=== PATIENT | female | born 1955 | race Caucasian/White ===

== ENCOUNTER 2020-03-01 10:56 | Outpatient (REF) | payer MEDICARE, SELFPAY | END 2020-03-01 10:57 | disposition home or self-care (01) | LOC: HO.LAB 10:56 | PROVIDERS: Visit Provider Hospitalist | DX: Z20.828 Contact with and (suspected) exposure to other viral communicable diseases (principal) | CPT/HCPCS: U0003 ==

== ENCOUNTER 2021-11-06 08:12 | Outpatient (REF) | payer MEDICARE, SELFPAY ==
[2021-11-06 11:30] LABS: Appearance Urine Clear; Color Urine Yellow; Glucose Urine UA Negative (Negative); Leukocyte Esterase Urine Small (1+) (Negative); Nitrite Urine Negative (Negative); PH 6.5 (5.0-9.0); Specific Gravity - Urine 1.015 (1.005-1.025); Urine Blood Trace (Negative); Urine Ketones Negative (Negative); Urine Protein Negative (Neg-Trace)
[2021-11-06 11:33] LABS: Basophils Absolute Auto 0.1 X10*3/uL (0.0-0.2); Basophils Percent Auto 0.8 % (0-2); Eosinophils Absolute Auto 0.3 X10*3/uL (0.0-0.4); Eosinophils Percent Auto 3.8 % (0-4); Hematocrit 39.7 % (37.0-47.0); Hemoglobin 13.4 g/dl (12.0-16.0); Imm Gran Abs Auto 0.04 X10*3/uL (0.00-0.03); Imm Gran Pct Auto 0.4 % (0.0-0.4); Lymphocytes Absolute Auto 1.9 X10*3/uL (1.2-4.9); MANUAL DIFF FLAG SCAN; Mean Corpuscular HGB Conc 33.8 g/dl (31.0-35.0); Mean Corpuscular Hemoglobin 31.5 pg (27.0-33.0); Mean Corpuscular Volume 93.4 fL (80.0-98.0); Mean Platelet Volume 10.7 fL (9.4-12.3); Monocytes Absolute Auto 0.8 X10*3/uL (0.1-1.2); Neutrophils Absolute Auto 5.8 x10*3/uL (2.0-8.3); PLT CLUMP 1; Red Blood Count 4.25 X10*6/uL (4.20-5.50); Red Cell Distribution Width 11.8 % (11.0-16.0); SCAN SMEAR FLAG 1
[2021-11-06 11:37] LABS: Bacteria Urine 2+ (None Seen); Estimated Average Glucose 143 mg/dL; Hemoglobin A1c % 6.6 %; Hyaline Casts Urine 0-2 /LPF (0-2); UACC Culture Trigger YES
[2021-11-06 12:02] LABS: TSH reflex Free T4 2.88 uIU/mL (0.32-4.0)
[2021-11-06 12:04] LABS: Platelet Count 238 X10*3/uL (160-400)
[2021-11-06 12:05] LABS: SLIDE REVIEW VERIFIED
[2021-11-06 12:09] LABS: Alanine Aminotransferase 18 U/L (0-31); Albumin Level 4.2 g/dL (3.5-5.0); Alkaline Phosphatase 85 U/L (39-117); Anion Gap 16 (12-20); Aspartate Amino Transferase 22 U/L (5-31); Bilirubin Total 0.4 mg/dL (0.0-1.0); Blood Urea Nitrogen 12 mg/dL (9-16); Calcium 9.1 mg/dL (8.4-10.2); Carbon Dioxide 26 mmol/L (22-29); Chloride 104 mmol/L (96-108); Cholesterol 210 mg/dL; Creatinine Urine 126.12 mg/dL; Estimated Glomerular Filt Rate > 60; Glucose Fasting 161 mg/dL (60-99); HDL Cholesterol 45 mg/dL; LDL Cholesterol Calculated 143 mg/dl; Microalbum/Creatinine Ratio Ur 9.5 ug/mg cr; Potassium 4.7 mmol/L (3.3-5.1); Sodium 141 mmol/L (135-145); Total Protein 7.4 g/dL (6.5-8.0); Triglycerides 111 mg/dL
== END 2021-11-06 08:13 | disposition home or self-care (01) ==
LOC: HO.WFDLDS 08:12
PROVIDERS: Visit Provider Family Medicine
DX: Z00.00 Encounter for general adult medical examination without abnormal findings (principal); R73.01 Impaired fasting glucose; I10 Essential (primary) hypertension
CPT/HCPCS: 36415; 80053; 80061; 81001; 82043; 83036; 84443; 85025; 87086

== ENCOUNTER → 2021-12-24 07:49 | Outpatient (BNVA) | payer MEDICARE, SELFPAY | PROVIDERS: PCP Family Medicine; Visit Provider Nurse Practitioner Family | DX: G47.00 Insomnia, unspecified (principal); G47.9 Sleep disorder, unspecified; R06.83 Snoring | CPT/HCPCS: 99202 ==

== ENCOUNTER → 2022-01-07 08:03 | Outpatient (REF) | payer MEDICARE, SELFPAY | LOC: HO.SL 08:03 | PROVIDERS: PCP Family Medicine; Visit Provider Nurse Practitioner Family | DX: G47.00 Insomnia, unspecified (principal); G47.30 Sleep apnea, unspecified; R40.0 Somnolence | CPT/HCPCS: 95806 ==

== ENCOUNTER 2022-03-26 09:01 | Outpatient (REF) | payer MEDICARE, SELFPAY ==
[2022-03-26 12:15] LABS: Alanine Aminotransferase 12 U/L (0-31); Albumin Level 3.9 g/dL (3.5-5.0); Alkaline Phosphatase 93 U/L (39-117); Anion Gap 18 (12-20); Aspartate Amino Transferase 17 U/L (5-31); Bilirubin Total 0.7 mg/dL (0.0-1.0); Blood Urea Nitrogen 15 mg/dL (9-16); Calcium 9.4 mg/dL (8.4-10.2); Carbon Dioxide 24 mmol/L (22-29); Chloride 103 mmol/L (96-108); Cholesterol 182 mg/dL; Estimated Glomerular Filt Rate > 60; Glucose Fasting 187 mg/dL (60-99); HDL Cholesterol 46 mg/dL; LDL Cholesterol Calculated 117 mg/dl; Potassium 4.5 mmol/L (3.3-5.1); Sodium 140 mmol/L (135-145); Total Protein 6.9 g/dL (6.5-8.0); Triglycerides 98 mg/dL
== END 2022-03-26 09:02 | disposition home or self-care (01) ==
LOC: HO.WFDLDS 09:01
PROVIDERS: Visit Provider Family Medicine
DX: Z00.00 Encounter for general adult medical examination without abnormal findings (principal); E11.9 Type 2 diabetes mellitus without complications; E78.00 Pure hypercholesterolemia, unspecified
CPT/HCPCS: 36415; 80053; 80061

== ENCOUNTER 2022-06-17 09:32 | Outpatient (REF) | payer MEDICARE, SELFPAY ==
[2022-06-17 13:35] LABS: Alanine Aminotransferase 20 U/L (0-31); Albumin Level 4.2 g/dL (3.5-5.0); Alkaline Phosphatase 104 U/L (39-117); Anion Gap 14 (12-20); Aspartate Amino Transferase 19 U/L (5-31); Bilirubin Total 0.7 mg/dL (0.0-1.0); Blood Urea Nitrogen 15 mg/dL (9-16); Calcium 9.6 mg/dL (8.4-10.2); Carbon Dioxide 27 mmol/L (22-29); Chloride 105 mmol/L (96-108); Estimated Glomerular Filt Rate > 60; Glucose Fasting 162 mg/dL (60-99); Potassium 4.8 mmol/L (3.3-5.1); Sodium 141 mmol/L (135-145); Total Protein 7.1 g/dL (6.5-8.0)
== END 2022-06-17 09:33 | disposition home or self-care (01) ==
LOC: HO.WFDLDS 09:32
PROVIDERS: Visit Provider Family Medicine
DX: Z00.00 Encounter for general adult medical examination without abnormal findings (principal)
CPT/HCPCS: 36415; 80053

== ENCOUNTER 2022-09-22 09:13 | Outpatient (REF) | payer MEDICARE, SELFPAY ==
[2022-09-22 11:59] LABS: Anion Gap 12 (12-20); Blood Urea Nitrogen 12 mg/dL (9-16); Calcium 9.7 mg/dL (8.4-10.2); Carbon Dioxide 28 mmol/L (22-29); Chloride 105 mmol/L (96-108); Cholesterol 180 mg/dL; Estimated Glomerular Filt Rate > 60; Glucose Random 159 mg/dL (60-115); HDL Cholesterol 47 mg/dL; LDL Cholesterol Calculated 103 mg/dl; Potassium 4.2 mmol/L (3.3-5.1); Sodium 141 mmol/L (135-145); Triglycerides 151 mg/dL
== END 2022-09-22 09:14 | disposition home or self-care (01) ==
LOC: HO.WFDLDS 09:13
PROVIDERS: Visit Provider Family Medicine
DX: Z00.00 Encounter for general adult medical examination without abnormal findings (principal); E78.00 Pure hypercholesterolemia, unspecified
CPT/HCPCS: 36415; 80048; 80061

== ENCOUNTER 2022-10-01 09:29 | Outpatient (AMB) | payer MEDICARE, SELFPAY ==
[2022-10-01 09:54] VITALS: BP 124/68; PULSE 80; O2SAT 98; BMI 31.5
--- NOTE | 2022-10-01 09:54 | MHC.PC.OV ---
Vital Signs 10/01/22 09:54 Height 5 ft 5 in Weight 189 lb 6 oz BMI 31.5 BP 124/68 Blood Pressure Location Lt brachial Position Sitting Pulse 80 Pulse Source Pulse Oximeter Pulse Oximetry (%) 98 Oxygen Delivery Method Room Air Intake Visit Reasons: f/u diabetes, HLD Intake Note: Patient is following up diabetes. Allergies penicillin V Allergy (Mild, Verified 10/01/22 09:55) unknown Medication List - Last Reconciled 10/01/22 by Heber Mcneill MD aspirin 325 mg PO QAM clonidine HCl 0.1 mg PO DAILY 30 days ibuprofen 600 mg PO TID PRN losartan 50 mg PO DAILY 90 days sennosides-docusate sodium 8.6-50 mg (Stimulant Laxative Plus) 2 tabs PO BEDTIME PRN sitagliptin phos-metformin 50-500 mg ER (Janumet XR) 1 tab PO DAILY 30 days zolpidem ER 6.25 mg PO BEDTIME PRN 30 days Tobacco use date assessed: 04/03/22 Fall risk assessment: No Falls in past year Dental Screening Dental Screen Date: 10/01/22 Did you have a dental visit in the last 12 months?: Yes Did you have a dental problem in the last 6 months where you did not have access to dental care?: No Was dental information given to patient?: No HPI f/u diabetes, HLD HPI Details 67 y/o female presents to f/u diabetes and hyperlipidemia. Last A1c 07/03/22 7.4.% She had noted she had a lot of fruits in [place]. She had also noted a recent cortisone shot for her knees. Had switched metformin to Janumet but she reports this has been giving her a significant headache. A1c today 10/01/22 is 6.5%. Blood pressure today is 124/68. She is on losartan 50mg and clonidine 0.1mg daily. Labs were drawn 09/22/22. Reviewed labs with pt. Triglycerides 151. TC 180. LDL 103. HDL 47. PFSH Medical History Bunion, right foot Surgical History H/O knee surgery H/O toe surgery History of lumbar fusion Family History Father Diabetes Mother Pacemaker High blood pressure Social History Housing: Condominium Alcohol intake: current Alcohol intake frequency: a few times a month Patient Tobacco Use Status: Former Tobacco user Quit Date: 1977 e-Cigarette/Vaping Use: Never Used Second Hand Smoke Exposure: No service: No Current occupational status: retired Current occupational exposures/hazards: No Cognitive needs: No Hearing needs: No Vision needs: No Questionnaire Thrive Questionnaire Date Thrive assessed: 04/03/22 MOE-7 AMB Questionnaire MOE-7 Date MOE - 7 assessed: 04/03/22 Source: Developed by Drs. César Jackson, Ramonita Fernandes, Cecilio Shepard and colleagues, with an educational vicente from [employer]. Physical exam (Primary Care) Vital Signs: Last Vital Signs Pulse 80 10/01/22 09:54 BP 124/68 10/01/22 09:54 Pulse Ox 98 10/01/22 09:54 Oxygen Delivery Method Room Air 10/01/22 09:54 BMI result Body Mass Index 31.5 Tobacco/Smoking Status: Tobacco use Status Tobacco use date assessed 04/03/22 10/01/22 10:01 Patient Tobacco Use Status Former Tobacco user 10/01/22 10:01 e-Cigarette/Vaping Use Never Used 10/01/22 10:01 Thrive Assessment: Date of Thrive Assessment Date Thrive assessed 04/03/22 10/01/22 10:01 Assessment and Plan Assessment & Plan (1) Diabetes: Code(s): E11.9 - Type 2 diabetes mellitus without complications Plan: A1c had improved from 7.4% to 6.5% on Januvia and goal is less than 7.0%. However, patient says she cannot tolerate this due to it causing headaches. She went back to taking metformin for the past 2 days and headaches have discontinued. Also, she notes that to new via is too expensive for her. Will have her take metformin 500 mg daily and add Trulicity 0.75 mg weekly Will follow up in a month to ensure she is tolerating this regimen. Getting regular eye exams (2) Hypercholesterolemia: Code(s): E78.00 - Pure hypercholesterolemia, unspecified Plan: LDL cholesterol is improved and nearly at goal of less than 100 for patient with diabetes Encouraged further weight loss and a diet lower in saturated fats and cholesterol (3) Hypertension: Code(s): I10 - Essential (primary) hypertension Plan: Blood pressure is controlled. Goal is less than 140/90 Continue current medication regimen Orders: Orders AMB Hemoglobin A1c Today Z13.9 - Encounter for screening, unspecified Medications: New metformin 500 mg PO DAILY 90 days 90 tabs 2RF dulaglutide (Trulicity) 0.75 mg (0.5 mL) subcut QWEEK 28 days 2 mL 3RF Changed From ibuprofen 600 mg PO TID PRN To ibuprofen 600 mg PO TID 30 days PRN 90 tabs 0RF pain Refilled tramadol [facility] verified. Partial refill upon request. 50 mg PO BID 10 days PRN 20 tabs 0RF pain Discontinued sitagliptin phos-metformin 50-500 mg ER (Janumet XR) Discontinued Reason: Doctor's Order 1 tab PO DAILY 30 days 30 tabs 2RF Coding Level of Care Code Est Pt Level 4 (31891) Diagnoses Diabetes E11.9 Hypercholesterolemia E78.00 Hypertension I10
== END 2022-10-01 10:24 | disposition home or self-care (01) ==
PROVIDERS: PCP Family Medicine; Visit Provider Family Medicine
DX: E11.9 Type 2 diabetes mellitus without complications (principal); E78.00 Pure hypercholesterolemia, unspecified; I10 Essential (primary) hypertension
CPT/HCPCS: 99214

== ENCOUNTER 2022-11-11 15:50 | Outpatient (AMB) | payer MEDICARE, SELFPAY ==
--- NOTE | 2022-11-11 16:01 | A.OFFPC_ITS ---
Vital Signs 11/11/22 16:02 Height 5 ft 5 in Weight 191 lb BMI 31.8 BP 134/70 Blood Pressure Location Rt brachial Position Sitting Respiration 12 Pulse 86 Pulse Source Pulse Oximeter Temp 97.9 F Temp Source Temporal Artery Scan Pulse Oximetry (%) 98 Oxygen Delivery Method Room Air Intake Visit Reasons: f/u diabetes Intake Note: Patient states that she is interested in getting a meter to monitor her glucose. Patient also states that she is taking half a tab of metformin instead of full tablet due to metformin causing headaches. Patient is wondering if there is an alternative for metformin she can get prescribed. 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 Accompanied by: Self / Same As Patient Allergies penicillin V Allergy (Mild, Verified 11/11/22 16:33) unknown Medication List - Last Reconciled 11/11/22 by Florence Fang CNP clonidine HCl 0.1 mg PO DAILY 30 days dulaglutide (Trulicity) 0.75 mg (0.5 mL) subcut QWEEK 28 days ibuprofen 600 mg PO TID PRN 30 days losartan 50 mg PO DAILY 90 days metformin 250 mg PO DAILY sennosides-docusate sodium 8.6-50 mg (Stimulant Laxative Plus) 2 tabs PO BEDTIME PRN tramadol 50 mg PO BID PRN 10 days zolpidem ER 6.25 mg PO BEDTIME PRN 30 days Tobacco use date assessed: 04/03/22 Fall risk assessment: No Falls in past year Last assessed Fall Risk: 11/11/22 Dental Screening Dental Screen Date: 11/11/22 Did you have a dental visit in the last 12 months?: Yes Did you have a dental problem in the last 6 months where you did not have access to dental care?: No Was dental information given to patient?: Patient has dentist HPI HPI Comments History of Present Illness Details 67-year-old female presents for diabetes follow-up. She is on metformin and Trulicity. She notes she takes after dose (250 mg) of metformin daily for the past 2 weeks d/t adverse effect of headache. She reports improve of headache since adjusting metformin dose. She has been taking Trulicity as prescribed. No acute symptoms today. [facility] Medical History Bunion, right foot Surgical History H/O toe surgery History of lumbar fusion H/O knee surgery Family History Father Diabetes Mother Pacemaker High blood pressure [facility] Alcohol intake: current Alcohol intake frequency: a few times a month Patient Tobacco Use Status: Never used Tobacco e-Cigarette/Vaping Use: Never Used Second Hand Smoke Exposure: No service: No Current occupational status: retired Current occupational exposures/hazards: No Cognitive needs: No Hearing needs: No Vision needs: No Questionnaire Thrive Questionnaire Date Thrive assessed: 04/03/22 MOE-7 AMB Questionnaire MOE-7 Date MOE - 7 assessed: 04/03/22 Source: Developed by Drs. César Jackson, Ramonita Fernandes, Cecilio Shepard and colleagues, with an educational vicente from [employer]. Review of Systems Const Details: Const Denies chills, Denies fatigue, Denies fever(s), Denies headache(s) and Denies weakness ENT Denies dizziness and Denies headache(s) Card Denies chest pain, Denies lightheadedness, Denies dyspnea and Denies other (Palpitations) Resp Denies cough, Denies dyspnea, Denies wheezing and Denies other ( shortness of breath) GI Denies abdominal pain, Denies melena, Denies hematochezia, Denies change in bowel habits, Denies dyspepsia and Denies nausea Denies hematuria and Denies dysuria Musc Denies abnormal gait, Denies myalgias, Denies arthralgias, Denies numbness and Denies tingling Skin/Breast Denies rash, Denies unusual bruising and Denies wounds Neuro Denies abnormal gait, Denies dizziness, Denies headache(s), Denies memory loss, Denies numbness, Denies Sensory deficit (Neuro), Denies tingling and Denies weakness Psych Denies anxiety, Denies depression, Denies memory loss Endo Denies cold intolerance, Denies fatigue, Denies heat intolerance, Denies polydipsia and Denies polyuria Aller/Immun Denies wheezing Physical exam (Primary Care) Vital Signs: Last Vital Signs Temp 97.9 F 11/11/22 16:02 Pulse 86 11/11/22 16:02 Resp 12 11/11/22 16:02 BP 134/70 11/11/22 16:02 Pulse Ox 98 11/11/22 16:02 Oxygen Delivery Method Room Air 11/11/22 16:02 BMI result Body Mass Index 31.8 Tobacco/Smoking Status: Tobacco use Status Tobacco use date assessed 04/03/22 11/11/22 16:01 Patient Tobacco Use Status Never used Tobacco 11/11/22 16:23 e-Cigarette/Vaping Use Never Used 11/11/22 16:01 Thrive Assessment: Date of Thrive Assessment Date Thrive assessed 04/03/22 11/11/22 16:01 Const Other: General: no acute distress and well developed Nutritional Appearance: well nourished Orientation/consciousness: patient oriented x3 HENMT Head: Yes normocephalic and Yes atraumatic Eyes General: appearance normal, both eyes and all related structures Pupils: Equal, round and reactive pupils present EOM: EOMs intact bilaterally Resp Effort & Inspection: normal respiratory effort Auscultation: clear to auscultation bilaterally Cardio Rate: regular rate Rhythm: regular rhythm Heart sounds: S1 normal heart sound present, S2 normal heart sound present, no gallops, no murmurs and no rubs GI Palpation (GI): No Abdominal aortic bruit present, Soft to palpation, nontender, No hepatosplenomegaly present and No Rebound tenderness present Auscultation: normal bowel sounds General: Yes no CVA tenderness Back/Spine/Pelvis Back: no CVA tenderness Cervical Spine: cervical ROM normal and No Cervical spine tenderness Thoracic/Lumbar Spine: thoraco-lumbar ROM normal, No pain with thoraco-lumbar ROM, No thoracic spinal tenderness and No lumbar spinal tenderness Extrem General: Yes normal to inspection, No edema and No calf tenderness Skin General: warm and dry. Normal skin color. Normal skin turgor Lesions: no lesions Rashes: no rashes Trauma: no lacerations or abrasions Wounds: no wounds Nails: normal Neuro General: patient oriented x3, gait normal and no focal neuro deficit Cranial nerves: Yes Equal, round and reactive pupils present Cognition (Neuro): normal cognition Gait exam (Neuro): Normal gait present Sensory Exam: No Sensory deficit (Neuro) Psych Appearance: grossly normal Affect: normal affect Attitude: cooperative Thought process: Normal thought process present Results AMB Hemoglobin A1c AMB Hemoglobin A1c 6.5 % Last Edit by Sweta Nguyen MA on 11/11/22 16:35 Assessment and Plan Assessment & Plan (1) Diabetes: Code(s): E11.9 - Type 2 diabetes mellitus without complications Qualifiers: Diabetes mellitus type: type 2 Plan: Her A1c is 6.5% today, within goal of less than 7.0% Previous A1c 7.4% Take metformin 250 mg daily and Trulicity 0.75 mg daily ADA diet and routine exercise encouraged Glucometer and supplies ordered. Advised to check blood glucose to 3 times daily Follow-up in 3 months or return sooner with worsening or new symptoms. May with your metformin with worsening headache Verbalized understanding and agreed with treatment plan. (2) Hypertension: Code(s): I10 - Essential (primary) hypertension Qualifiers: Hypertension type: primary hypertension Qualified Code(s): I10 - Essential (primary) hypertension Plan: Blood pressure is 134/70, slightly above goal of less than 130/80 Continue with current treatment regimen Low-sodium diet encouraged Follow-up in 3 months or return sooner with symptoms or concerns Verbalized understanding and agreed with treatment plan. Orders: Orders AMB Hemoglobin A1c Today Z13.9 - Encounter for screening, unspecified Medications: New blood-glucose meter (FreeStyle Lite Meter kit) As directed 1 ea 0RF blood sugar diagnostic (FreeStyle Lite Strips) As directed TID 100 ea 4RF lancets (FreeStyle Lancets) As directed 100 ea 4RF Changed From metformin 500 mg PO DAILY 90 days 90 tabs 2RF To metformin 250 mg PO DAILY Coding Level of Care Code Est Pt Level 3 (19608) Diagnoses Diabetes E11.9 Diabetes mellitus type: type 2 Primary hypertension I10 Hypertension type: primary hypertension
[2022-11-11 16:02] VITALS: BP 134/70; PULSE 86; RESP 12; TEMP 36.6; O2SAT 98; BMI 31.8
== END 2022-11-11 16:57 | disposition home or self-care (01) ==
PROVIDERS: PCP Family Medicine; Visit Provider Nurse Practitioner Family
DX: E11.9 Type 2 diabetes mellitus without complications (principal); I10 Essential (primary) hypertension
CPT/HCPCS: 99213

== ENCOUNTER 2023-01-15 13:47 | Outpatient (AMB) | payer MEDICARE, SELFPAY ==
[2023-01-15 14:06] VITALS: BP 128/82; PULSE 101; O2SAT 98; BMI 31.1
--- NOTE | 2023-01-15 14:06 | MHC.PC.OV ---
Vital Signs 01/15/23 14:06 Height 5 ft 5 in Weight 187 lb BMI 31.1 BP 128/82 Blood Pressure Location Lt brachial Position Sitting Pulse 101 H Pulse Source Pulse Oximeter Pulse Oximetry (%) 98 Oxygen Delivery Method Room Air Intake Visit Reasons: Annual Physical Intake Note: Patient is here for A1C Allergies penicillin V Allergy (Mild, Verified 11/11/22 16:33) unknown Tobacco use date assessed: 01/15/23 Fall risk assessment: No Falls in past year Last assessed Fall Risk: 01/15/23 HPI Annual Physical HPI Details 67 y/o female presents to f/u diabetes and hypertension today. A1c today 01/15/23 5.8%. She is on metformin 250mg daily along with Trulicity 0.75mg. She reports concerns about the osorio of her Trulicity. She sees an eye doctor once a year for diabetes. Blood pressure today 128/82. She is on losartan 50mg daily. [facility] Medical History Bunion, right foot Surgical History H/O toe surgery History of lumbar fusion H/O knee surgery Family History Father Diabetes Mother Pacemaker High blood pressure [facility] Alcohol intake: current Alcohol intake frequency: a few times a month Patient Tobacco Use Status: Never used Tobacco e-Cigarette/Vaping Use: Never Used Second Hand Smoke Exposure: No service: No Current occupational status: retired Current occupational exposures/hazards: No Cognitive needs: No Hearing needs: No Vision needs: No Questionnaire Thrive Questionnaire Date Thrive assessed: 04/03/22 MOE-7 AMB Questionnaire MOE-7 Date MOE - 7 assessed: 04/03/22 Source: Developed by Drs. César Jackson, Ramonita Fernandes, Cecilio Shepard and colleagues, with an educational vicente from [employer]. Review of Systems Const Denies chills, Denies fatigue, Denies fever(s), Denies headache(s) and Denies weakness ENT Denies dizziness and Denies headache(s) Card Denies dyspnea Resp Denies cough, Denies dyspnea, Denies wheezing and Denies other (shortness of breath) Musc Denies numbness and Denies tingling Neuro Denies dizziness, Denies headache(s), Denies numbness, Denies tingling and Denies weakness Psych Denies anxiety and Denies depression Endo Denies fatigue Aller/Immun Denies wheezing Physical exam (Primary Care) Vital Signs: Last Vital Signs Pulse 101 H 01/15/23 14:06 BP 128/82 01/15/23 14:06 Pulse Ox 98 01/15/23 14:06 Oxygen Delivery Method Room Air 01/15/23 14:06 BMI result Body Mass Index 31.1 Tobacco/Smoking Status: Tobacco use Status Tobacco use date assessed 01/15/23 01/15/23 14:16 Patient Tobacco Use Status Never used Tobacco 01/15/23 14:09 e-Cigarette/Vaping Use Never Used 01/15/23 14:09 Thrive Assessment: Date of Thrive Assessment Date Thrive assessed 04/03/22 01/15/23 14:09 Const General: well developed; No acute distress Nutritional Appearance: well nourished Orientation/consciousness: patient oriented x3 HENMT Head: Yes normocephalic and Yes atraumatic Eyes General: appearance normal, both eyes and all related structures Pupils: Equal, round and reactive pupils present EOM: EOMs intact bilaterally Resp Effort & Inspection: normal respiratory effort Auscultation: clear to auscultation bilaterally Cardio Rate: regular rate Rhythm: regular rhythm Heart sounds: S1 normal heart sound present, S2 normal heart sound present, no gallops, no murmurs and no rubs Neuro General: patient oriented x3 and gait normal Cranial nerves: Yes Equal, round and reactive pupils present Psych Affect: normal affect Results AMB Hemoglobin A1c AMB Hemoglobin A1c 5.8 % Last Edit by Lana Dickerson CMA on 01/15/23 14:30 Results Reviewed Results Reviewed: Laboratory Last Values Hgb A1c (Clinic) 5.8 % (4.0-6.0) 01/15/23 14:22 Assessment and Plan Assessment & Plan (1) Diabetes: Code(s): E11.9 - Type 2 diabetes mellitus without complications Qualifiers: Diabetes mellitus type: type 2 Plan: Diabetes?is?very?well?controlled.??Goal?is?less?than?7.0% She?has?been?taking?Trulicity?and?metformin?500?mg?daily. However,?she?notes?that?Trulicity?has?become?very?expensive She?was?given?some?phone?numbers?by?her?insurance?and?I?recommended?she?call?these. She?can?decrease?metformin?to?250?mg?daily If?she?is?unable?to?acquire?Trulicity?at?a?more?affordable?osorio,?she?will?let?me?know?and?we?will?adjust?her?medication?regimen?again. (2) Hypertension: Code(s): I10 - Essential (primary) hypertension Qualifiers: Hypertension type: primary hypertension Qualified Code(s): I10 - Essential (primary) hypertension Plan: Blood?pressure?is?controlled. Goal?is?less?than?140/90 Continue?current?medication (3) Hypercholesterolemia: Code(s): E78.00 - Pure hypercholesterolemia, unspecified Plan: Discussed?that?her?LDL?cholesterol?is?above?goal?of?less?than?100?for?patient?with?diabetes Encouraged?lifestyle?changes Will?recheck?lipids?with?her?next?blood?draw Orders: Orders AMB Hemoglobin A1c Today Z13.9 - Encounter for screening, unspecified Coding Level of Care Code Est Pt Level 4 (70310) Diagnoses Diabetes E11.9 Diabetes mellitus type: type 2 Primary hypertension I10 Hypertension type: primary hypertension Hypercholesterolemia E78.00
== END 2023-01-15 15:16 | disposition home or self-care (01) ==
PROVIDERS: PCP Family Medicine; Visit Provider Family Medicine
DX: E11.9 Type 2 diabetes mellitus without complications (principal); I10 Essential (primary) hypertension; E78.00 Pure hypercholesterolemia, unspecified
CPT/HCPCS: 83036; 99214

== ENCOUNTER 2023-03-19 10:55 | Outpatient (REF) | payer MEDICARE, SELFPAY | END 2023-03-19 10:56 | disposition home or self-care (01) | LOC: HO.WFDLDS 10:55 | PROVIDERS: Visit Provider Family Medicine | DX: Z13.89 Encounter for screening for other disorder (principal) ==

== ENCOUNTER 2023-03-20 09:24 | Outpatient (REF) | payer MEDICARE, SELFPAY ==
[2023-03-20 11:19] LABS: MANUAL DIFF FLAG NO
[2023-03-20 11:59] LABS: Appearance Urine Clear; Color Urine Yellow; Glucose Urine UA Negative (Negative); Leukocyte Esterase Urine Trace (Negative); Nitrite Urine Negative (Negative); Specific Gravity - Urine 1.015 (1.005-1.025); UMIC TRIGGER UA YES; Urine Blood Trace (Negative); Urine Ketones Negative (Negative); Urine Protein Negative (Neg-Trace)
[2023-03-20 12:01] LABS: Basophils Absolute Auto 0.1 X10*3/uL (0.0-0.2); Basophils Percent Auto 1.1 % (0-2); Eosinophils Absolute Auto 0.3 X10*3/uL (0.0-0.4); Eosinophils Percent Auto 3.6 % (0-4); Hematocrit 42.9 % (37.0-47.0); Hemoglobin 14.2 g/dl (12.0-16.0); Imm Gran Abs Auto 0.04 X10*3/uL (0.00-0.03); Imm Gran Pct Auto 0.4 % (0.0-0.4); Lymphocytes Absolute Auto 2.3 X10*3/uL (1.2-4.9); Lymphocytes Percent Auto 25.1 % (20-40); Mean Corpuscular HGB Conc 33.1 g/dl (31.0-35.0); Mean Corpuscular Hemoglobin 31.1 pg (27.0-33.0); Mean Corpuscular Volume 93.9 fL (80.0-98.0); Mean Platelet Volume 9.9 fL (9.4-12.3); Monocytes Absolute Auto 0.7 X10*3/uL (0.1-1.2); Monocytes Percent Auto 7.9 % (2-11); Neutrophils Absolute Auto 5.6 x10*3/uL (2.0-8.3); Neutrophils Percent Auto 61.9 % (45-73); Platelet Count 251 X10*3/uL (160-400); Red Blood Count 4.57 X10*6/uL (4.20-5.50)
[2023-03-20 12:02] LABS: Bacteria Urine Trace (None Seen); Hyaline Casts Urine 0-2 /LPF (0-2); WBC Urine 0-5 /HPF (0-5)
[2023-03-20 12:40] LABS: Creatinine Urine 103.67 mg/dL; Microalbum/Creatinine Ratio Ur 5.7 ug/mg cr (<30)
[2023-03-20 12:47] LABS: Estimated Average Glucose 134 mg/dL; Hemoglobin A1c % 6.3 % (<6.0)
[2023-03-20 13:26] LABS: Alanine Aminotransferase 16 U/L (0-31); Albumin Level 4.1 g/dL (3.5-5.0); Alkaline Phosphatase 83 U/L (39-117); Anion Gap 10 (12-20); Aspartate Amino Transferase 18 U/L (5-31); Bilirubin Total 0.6 mg/dL (0.0-1.0); Blood Urea Nitrogen 13 mg/dL (9-16); Calcium 9.3 mg/dL (8.4-10.2); Carbon Dioxide 28 mmol/L (22-29); Chloride 105 mmol/L (96-108); Cholesterol 194 mg/dL (<200); Estimated Glomerular Filt Rate > 60; Glucose Fasting 174 mg/dL (60-99); HDL Cholesterol 56 mg/dL (>40); LDL Cholesterol Calculated 117 mg/dL (<100); Potassium 4.4 mmol/L (3.3-5.1); Sodium 139 mmol/L (135-145); TSH reflex Free T4 3.38 uIU/mL (0.32-4.0); Total Protein 7.4 g/dL (6.5-8.0); Triglycerides 109 mg/dL (<150); Vitamin D 25-OH Total 65.3 ng/mL (>30)
== END 2023-03-20 09:25 | disposition home or self-care (01) ==
LOC: HO.WFDLDS 09:24
PROVIDERS: Visit Provider Family Medicine
DX: Z00.00 Encounter for general adult medical examination without abnormal findings (principal); I10 Essential (primary) hypertension; R73.01 Impaired fasting glucose; E55.9 Vitamin D deficiency, unspecified
CPT/HCPCS: 36415; 80053; 80061; 81001; 82043; 82306; 82570; 83036; 84443; 85025

== ENCOUNTER 2023-03-23 13:53 | Outpatient (AMB) | payer MEDICARE, SELFPAY ==
[2023-03-23 13:56] VITALS: BP 124/78; PULSE 82; O2SAT 98; BMI 30.9
--- NOTE | 2023-03-23 13:56 | A.OFFPC_ITS ---
Vital Signs 03/23/23 13:56 Height 5 ft 5 in Weight 186 lb BMI 30.9 BP 124/78 Blood Pressure Location Lt brachial Position Sitting Pulse 82 Pulse Source Pulse Oximeter Pulse Oximetry (%) 98 Oxygen Delivery Method Room Air Intake Visit Reasons: cpe Intake Note: Patient is here for her physical today. Patient is low on Metformin and Ibuprofen, would like refills. Allergies penicillin V Allergy (Mild, Verified 03/23/23 13:58) unknown Medication List - Last Reconciled 03/23/23 by Heber Mcneill MD blood sugar diagnostic (FreeStyle Lite Strips) As directed TID blood-glucose meter (FreeStyle Lite Meter kit) As directed clonidine HCl 0.1 mg PO DAILY 30 days dulaglutide (Trulicity) 0.75 mg (0.5 mL) subcut QWEEK 28 days ibuprofen 600 mg PO TID PRN 30 days lancets (FreeStyle Lancets) As directed losartan 50 mg PO DAILY 90 days metformin 250 mg PO DAILY sennosides-docusate sodium 8.6-50 mg (Stimulant Laxative Plus) 2 tabs PO BEDTIME PRN tramadol 50 mg PO BID PRN 10 days zolpidem ER 6.25 mg PO BEDTIME PRN 30 days Tobacco use date assessed: 03/23/23 Fall risk assessment: No Falls in past year Last assessed Fall Risk: 03/23/23 Dental Screening Dental Screen Date: 03/23/23 Did you have a dental visit in the last 12 months?: Yes Did you have a dental problem in the last 6 months where you did not have access to dental care?: No Was dental information given to patient?: Patient has dentist HPI cpe HPI Details 67 y/o female presents for a CPE with f/ u labs and health maintenance. Labs were drawn 03/20/23. Reviewed labs with pt. A1c 6.3%. She is on Trulicity 0.75mg, metformin 250mg daily. She notes Trulicity has been too expensive for her. Triglycerides 109. TC 194. LDL 117. HDL 56. Blood pressure today 124/78. She is on losartan 50mg daily. She has not been exercising much. She states she is up to date with her health maintenance. [facility] Medical History Bunion, right foot Surgical History H/O toe surgery History of lumbar fusion H/O knee surgery Family History Father Diabetes Mother Pacemaker High blood pressure [facility] Alcohol intake: current Alcohol intake frequency: a few times a month Patient Tobacco Use Status: Never used Tobacco e-Cigarette/Vaping Use: Never Used Second Hand Smoke Exposure: No service: No Current occupational status: retired Current occupational exposures/hazards: No Cognitive needs: No Hearing needs: No Vision needs: No Questionnaire Thrive Questionnaire Date Thrive assessed: 04/03/22 MOE-7 AMB Questionnaire MOE-7 Date MOE - 7 assessed: 04/03/22 Source: Developed by Drs. César Jackson, Ramonita Fernandes, Cecilio Shepard and colleagues, with an educational vicente from [employer]. Review of Systems Const Denies chills, Denies fatigue, Denies fever(s), Denies headache(s) and Denies weakness Eyes Denies change in vision ENT Denies dizziness, Denies headache(s), Denies hearing loss, Denies nasal congestion, Denies sinus pain, Denies sinus pressure and Denies sore throat Card Denies chest pain, Denies lightheadedness, Denies dyspnea and Denies other (palpitations) Resp Denies cough, Denies dyspnea and Denies wheezing GI Denies abdominal pain, Denies melena, Denies hematochezia, Denies change in bowel habits, Denies dyspepsia and Denies nausea Denies hematuria and Denies dysuria Musc Denies abnormal gait, Denies myalgias, Denies arthralgias, Denies numbness and Denies tingling Skin/Breast Denies rash, Denies unusual bruising and Denies wounds Neuro Denies abnormal gait, Denies dizziness, Denies headache(s), Denies memory loss, Denies numbness, Denies Sensory deficit (Neuro), Denies tingling and Denies weakness Psych Denies anxiety, Denies depression and Denies memory loss Endo Denies cold intolerance, Denies fatigue, Denies heat intolerance, Denies polydipsia and Denies polyuria Sergei/Lymph Denies easy bleeding and Denies easy bruising Aller/Immun Denies wheezing Physical exam (Primary Care) Vital Signs: Last Vital Signs Pulse 82 03/23/23 13:56 BP 124/78 03/23/23 13:56 Pulse Ox 98 03/23/23 13:56 Oxygen Delivery Method Room Air 03/23/23 13:56 BMI result Body Mass Index 30.9 Tobacco/Smoking Status: Tobacco use Status Tobacco use date assessed 03/23/23 03/23/23 14:07 Patient Tobacco Use Status Never used Tobacco 03/23/23 13:57 e-Cigarette/Vaping Use Never Used 03/23/23 13:57 Thrive Assessment: Date of Thrive Assessment Date Thrive assessed 04/03/22 03/23/23 13:57 Const General: no acute distress, well developed, alert and awake Nutritional Appearance: well nourished Orientation/consciousness: patient oriented x3 HENMT Head: Yes normocephalic and Yes atraumatic Ears: hearing grossly normal bilaterally and TM's normal bilaterally General nose exam: Normal external nose present and Normal nares present Mouth: Normal oral and palatal mucosa present and moist mucous membranes Teeth and gingiva: dentition normal Throat: Yes posterior oropharynx normal Eyes General: appearance normal, both eyes and all related structures Pupils: Equal, round and reactive pupils present and Pupil accommodation reflex normal EOM: EOMs intact bilaterally Neck Neck: Yes normal visual inspection, Yes no lymphadenopathy and Yes trachea midline Thyroid: Thyroid normal Carotids: no bruits Lymphatic: no lymphadenopathy noted Chest Chest palpation & inspection: normal inspection of the chest Resp Effort & Inspection: normal respiratory effort Auscultation: clear to auscultation bilaterally Cardio Rate: regular rate Rhythm: regular rhythm Heart sounds: S1 normal heart sound present, S2 normal heart sound present, no gallops, no murmurs and no rubs Bruits: no abdominal aortic bruits and no carotid bruits GI Palpation (GI): No Abdominal aortic bruit present, Soft to palpation, nontender, No hepatosplenomegaly present and No Rebound tenderness present Auscultation: normal bowel sounds General: Yes no CVA tenderness Back/Spine/Pelvis Back: no CVA tenderness Cervical Spine: cervical ROM normal and No Cervical spine tenderness Thoracic/Lumbar Spine: thoraco-lumbar ROM normal, No pain with thoraco-lumbar ROM, No thoracic spinal tenderness and No lumbar spinal tenderness Skin Lesions: no lesions Rashes: no rashes Trauma: no lacerations or abrasions Wounds: no wounds Nails: normal Neuro General: patient oriented x3 Cranial nerves: Yes Equal, round and reactive pupils present Cognition (Neuro): normal cognition Gait exam (Neuro): Normal gait present Motor exam (neuro): 5/5 motor strength present throughout Sensory Exam: No Sensory deficit (Neuro) Deep tendon reflexes (DTR's): Right patellar reflex intensity grade: 2+ and Left patellar reflex intensity grade: 2+ Extrem General: Yes normal to inspection and No edema Psych Appearance: grossly normal Affect: normal affect Attitude: cooperative Thought process: Normal thought process present Assessment and Plan Assessment & Plan (1) Adult general medical exam: Code(s): Z00.00 - Encounter for general adult medical examination without abnormal findings Plan: 67-year-old?female?presents?for?complete?physical?exam Encouraged?healthy?diet?with?active?lifestyle?and?plenty?of?exercise (2) Diabetes: Code(s): E11.9 - Type 2 diabetes mellitus without complications Qualifiers: Diabetes mellitus type: type 2 Plan: A1c?6.3%?which?is?slightly?increased?from?last?check.??Still?at?goal?of?less?verenice n?7.0%?despite?discontinuing?Trulicity?due?to?cost. She?is?taking?metformin?500?mg?daily?and?will?continue?this LDL?cholesterol?is?above?goal?of?less?than?100?for?patient?with?diabetes. Encouraged?her?to?work?at?a?diet?lower?in?saturated?fats?and?cholesterol?we?can? check?this?again?at?a?subsequent?visit (3) Screening for colon cancer: Code(s): Z12.11 - Encounter for screening for malignant neoplasm of colon Plan: Colonoscopy?at?[facility]?last?year. Up-to-date Follow-up?with?[facility]?as?recommended (4) Screening for osteoporosis: Code(s): Z13.820 - Encounter for screening for osteoporosis Plan: Due?for?bone?density?testing-ordered (5) Breast cancer screening by mammogram: Code(s): Z12.31 - Encounter for screening mammogram for malignant neoplasm of breast Plan: Mammogram?last?year?in?May?showed?no?evidence?of?malignancy Ordered?this?year's?mammogram Orders: Orders XR DEXA axial skeleton Today M81.0 - Age-related osteoporosis without current pathological fracture MM tomosynthesis screening BI Today Z12.31 - Encounter for screening mammogram for malignant neoplasm of breast Medications: Changed From metformin 250 mg PO DAILY To metformin 500 mg PO DAILY 90 days 90 tabs 3RF Refilled ibuprofen 600 mg PO TID 30 days PRN 90 tabs 0RF pain Discontinued dulaglutide (Trulicity) Discontinued Reason: Doctor's Order 0.75 mg (0.5 mL) subcut QWEEK 28 days 2 mL 3RF Coding Level of Care Code Est Pt Level 3 (06678) Est Pt Prev Care >65y(04345) Diagnoses Adult general medical exam Z00.00 Diabetes E11.9 Diabetes mellitus type: type 2 Screening for colon cancer Z12.11 Screening for osteoporosis Z13.820 Breast cancer screening by mammogram Z12.31
== END 2023-03-23 14:29 | disposition home or self-care (01) ==
PROVIDERS: PCP Family Medicine; Visit Provider Family Medicine
DX: Z00.00 Encounter for general adult medical examination without abnormal findings (principal); E11.9 Type 2 diabetes mellitus without complications; Z12.11 Encounter for screening for malignant neoplasm of colon; Z13.820 Encounter for screening for osteoporosis; Z12.31 Encounter for screening mammogram for malignant neoplasm of breast
CPT/HCPCS: 99397

== ENCOUNTER 2023-04-08 10:14 | Outpatient (REF) | payer MEDICARE, SELFPAY ==
--- NOTE | ~2023-04-08 | MM_ITS ---
EXAMINATION: BONE DENSITOMETRY CLINICAL INDICATION: Age-related osteoporosis without current pathological fracture. COMPARISON: This is the patient's baseline examination. TECHNIQUE: Using a [employer] DXA System (software version: 13.1) manufactured by [employer], dual-energy x-ray absorptiometry was performed of the left hip and left forearm radius 33%. The images are of good technical quality. Summary results are attached. FINDINGS: LEFT FEMUR, NECK: BMD 0.768 g/cm2, Z-score -0.7, T-score -1.9, osteopenia. LEFT FEMUR, TOTAL: BMD 0.904 g/cm2, Z-score 0.2, T-score -0.8, normal. LEFT FOREARM RADIUS 33%: BMD 0.836 g/cm2, Z-score 1.3, T-score -0.5, normal. IDENTIFIED RISK FACTORS: Menopause, secondary osteoporosis. HISTORY OF FRACTURE: None listed. MEDICATIONS: Calcium, vitamin D. MM/XR DEXA axial skeleton IMPRESSION: 1. DIAGNOSIS: Osteopenia based on the lowest T-score value of -1.9 in the femoral neck applying World Health Organization criteria. 2. 10-YEAR FRACTURE RISK PREDICTION, FRAX: Major osteoporotic fracture (clinical spine, forearm, hip or shoulder) 11.1%. Hip fracture 2.0%. 3. Treatment Recommendations: NOF guidelines recommend consideration for treatment in postmenopausal women and men age 50 and older presenting with the following: -A hip or vertebral (clinical or morphometric) fracture. -T-score less than or equal to -2.5 at the femoral neck or spine after appropriate evaluation to exclude secondary causes. -Low bone mass at the hip or spine and a 10-year fracture probability by FRAX of greater than or equal to 3% for hip fracture or greater than or equal to 20% for major osteoporotic fracture based on the [place] adapted WHO algorithm. 4. Other Recommendations: All treatment decisions require clinical judgment and consideration of individual patient factors, including patient preferences, comorbidities, previous drug use, risk factors not captured in the FRAX model (e.g. frailty, falls, vitamin D deficiency, increased bone turnover, interval significant decline in bone density) and possible under or overestimation of fracture risk by FRAX. Additional medical evaluation for secondary cause of low bone mineral density may be appropriate. FUTURE SCAN RECOMMENDATION: People with diagnosed cases of osteoporosis or at high risk for fracture should have regular bone mineral density tests. For patients eligible for Medicare, routine testing is allowed once every 2 years. The testing frequency can be increased to one year for patients who have rapidly progressing disease, those who are receiving or discontinuing medical therapy to restore bone mass, or have additional risk factors.
== END 2023-04-08 10:15 | disposition home or self-care (01) ==
LOC: HO.MAMMO 10:14
PROVIDERS: PCP Family Medicine; Visit Provider Family Medicine
DX: Z13.820 Encounter for screening for osteoporosis (principal); M81.0 Age-related osteoporosis without current pathological fracture; Z78.0 Asymptomatic menopausal state
CPT/HCPCS: 77080

== ENCOUNTER 2023-06-17 08:22 | Outpatient (AMB) | payer MEDICARE, SELFPAY ==
--- NOTE | 2023-06-17 08:35 | AM.OFFWIN_ITS ---
Intake Vital Signs 06/17/23 08:38 Height 5 ft 5 in Weight 192 lb BMI 31.9 BP 138/76 Blood Pressure Location Rt brachial Position Sitting Respiration 14 Pulse 70 Pulse Source Pulse Oximeter Temp 98 F Temp Source Oral Pulse Oximetry (%) 99 Oxygen Delivery Method Room Air Intake Visit Reasons: fb in ear Intake Note: Ear bud stuck in left ear Patient Tobacco Use Status: Former Tobacco user Quit Date: 1977 Allergies penicillin V Allergy (Mild, Verified 03/23/23 13:58) unknown Do you need a note to return to daycare/school/sports/work: No HPI fb in ear HPI Details Patient is a 68-year-old female with a significant past medical history of hypertension, hyperlipidemia and type 2 diabetes presenting today with complaints of a foreign body in her left ear. She states the tip of her earbuds came off and is stuck in the left ear. She noted it 2 days ago and states it started with discomfort but is unaware when she got the fb stuck in it. No drainage, fever or chills. No change in hearing. Denies any sinus pain or pressure, swelling in the neck. No dizziness. [facility] Medical History Bunion, right foot Surgical History H/O toe surgery History of lumbar fusion H/O knee surgery Family History Father Diabetes Mother Pacemaker High blood pressure Social History Housing: Condominium Alcohol intake: current Alcohol intake frequency: a few times a month Patient Tobacco Use Status: Former Tobacco user Quit Date: 1977 e-Cigarette/Vaping Use: Never Used Second Hand Smoke Exposure: No service: No Current occupational status: retired Current occupational exposures/hazards: No Cognitive needs: No Hearing needs: No Vision needs: No Physical Exam Vital Signs: Last Vital Signs Temp 98 F 06/17/23 08:38 Pulse 70 06/17/23 08:38 Resp 14 06/17/23 08:38 BP 138/76 06/17/23 08:38 Pulse Ox 99 06/17/23 08:38 Oxygen Delivery Method Room Air 06/17/23 08:38 BMI result Body Mass Index 31.9 Const Orientation/consciousness: patient oriented x3 HEENT Other: There is a small, ear bud tip noted at the entrance of the left ear canal. Negative tug test. -the ear bud was removed with tweezers without difficulty. The canal was clear, TM WNL. Right ear canal clear, TM WNL as well. Ears: hearing grossly normal bilaterally Neck Thyroid: Thyroid normal Lymphatic: no lymphadenopathy noted Resp Auscultation: clear to auscultation bilaterally Cardio Rate: regular rate Rhythm: regular rhythm Heart sounds: S1 normal heart sound present and S2 normal heart sound present Skin General skin exam: no rashes or lesions noted Neuro General: patient oriented x3, gait normal and no focal motor deficits Assessment & Plan Assessment & Plan (1) Foreign body in left ear, initial encounter: Code(s): T16.2XXA - Foreign body in left ear, initial encounter Plan: Foreign body removed without complication. No signs of infection. Advised patient to monitor for any drainage, pain, fever or chills. Coding Level of Care Code Est Pt Level 3 (76455) Diagnoses Foreign body in left ear, initial encounter T16.2XXA
[2023-06-17 08:38] VITALS: BP 138/76; PULSE 70; RESP 14; TEMP 36.6; O2SAT 99; BMI 31.9
== END 2023-06-17 08:53 | disposition home or self-care (01) ==
PROVIDERS: PCP Family Medicine; Visit Provider Physician Assistant
DX: T16.2XXA Foreign body in left ear, initial encounter (principal)
CPT/HCPCS: 69200; 99213

== ENCOUNTER 2023-06-17 08:27 | Outpatient (REF) | payer MEDICARE, SELFPAY ==
[2023-06-17 12:35] LABS: Alanine Aminotransferase 18 U/L (0-31); Albumin Level 4.1 g/dL (3.5-5.0); Anion Gap 10 (12-20); Aspartate Amino Transferase 24 U/L (5-31); Bilirubin Total 0.5 mg/dL (0.0-1.0); Blood Urea Nitrogen 13 mg/dL (9-16); Calcium 9.4 mg/dL (8.4-10.2); Carbon Dioxide 27 mmol/L (22-29); Chloride 106 mmol/L (96-108); Cholesterol 190 mg/dL (<200); Estimated Glomerular Filt Rate > 60; Glucose Fasting 150 mg/dL (60-99); HDL Cholesterol 58 mg/dL (>40); LDL Cholesterol Calculated 118 mg/dL (<100); Potassium 4.2 mmol/L (3.3-5.1); Sodium 139 mmol/L (135-145); Total Protein 7.5 g/dL (6.5-8.0); Triglycerides 73 mg/dL (<150)
[2023-06-17 13:19] LABS: Alkaline Phosphatase 95 U/L (39-117)
== END 2023-06-17 08:28 | disposition home or self-care (01) ==
LOC: HO.WFDLDS 08:27
PROVIDERS: Visit Provider Family Medicine
DX: Z00.00 Encounter for general adult medical examination without abnormal findings (principal); Z13.6 Encounter for screening for cardiovascular disorders
CPT/HCPCS: 36415; 80053; 80061

== ENCOUNTER 2023-06-22 11:19 | Outpatient (AMB) | payer MEDICARE, SELFPAY ==
[2023-06-22 11:41] VITALS: BP 132/70; PULSE 99; O2SAT 99; BMI 32.2
--- NOTE | 2023-06-22 11:41 | MHC.PC.OV ---
Vital Signs 06/22/23 11:41 Height 5 ft 5 in Weight 193 lb 6 oz BMI 32.2 BP 132/70 Blood Pressure Location Lt brachial Position Sitting Pulse 99 Pulse Source Pulse Oximeter Pulse Oximetry (%) 99 Oxygen Delivery Method Room Air Intake Visit Reasons: f/u diabetes - see comments Intake Note: Patient is here to follow up on diabetes. Allergies penicillin V Allergy (Mild, Verified 06/22/23 11:42) unknown Medication List - Last Reconciled 06/22/23 by Heber Mcneill MD blood sugar diagnostic (FreeStyle Lite Strips) As directed TID blood-glucose meter (FreeStyle Lite Meter kit) As directed clonidine HCl 0.1 mg PO DAILY 30 days dulaglutide (Trulicity) 0.75 mg (0.5 mL) subcut QWEEK 28 days ibuprofen 600 mg PO TID PRN 30 days lancets (FreeStyle Lancets) As directed losartan 50 mg PO DAILY 90 days metformin 500 mg PO DAILY 90 days tramadol 50 mg PO BID PRN 10 days zolpidem ER 6.25 mg PO BEDTIME PRN 30 days Tobacco use date assessed: 06/22/23 Fall risk assessment: No Falls in past year Last assessed Fall Risk: 06/22/23 Dental Screening Dental Screen Date: 06/22/23 Did you have a dental visit in the last 12 months?: Yes Did you have a dental problem in the last 6 months where you did not have access to dental care?: No Was dental information given to patient?: Patient has dentist HPI f/u diabetes - see comments HPI Details 68 y/o female presents to f/u hypertension, diabetes, lipids. Had been taking metformin 500mg daily and last A1c 03/23/23 6.3%. A1c today 06/22/23 is 6.6%. Blood pressure today 132/70. Labs were drawn 06/17/23. Reviewed labs with pt. Triglcyerides 73. TC 190. LDL 118. HDL 58. HPI Comments History of Present Illness Details Documentation assistance for Heber Mcneill MD, was provided by Ferny Garces,[employer] on 06/22/2023 11:50 AM EST. Kraus, Dr. Mcneill, have read, observed, and verified documentation. [facility] Medical History Bunion, right foot Surgical History H/O toe surgery History of lumbar fusion H/O knee surgery Family History (Updated 06/22/23 @ 11:46 by Lana Dickerson CMA) Father Diabetes Mother Pacemaker High blood pressure Sister Mental health disorder Social History Housing: Condominium Alcohol intake: current Alcohol intake frequency: a few times a month Patient Tobacco Use Status: Former Tobacco user Quit Date: 1977 e-Cigarette/Vaping Use: Never Used Second Hand Smoke Exposure: No service: No Current occupational status: retired Current occupational exposures/hazards: No Cognitive needs: No Hearing needs: No Vision needs: No Questionnaire Thrive Questionnaire Date Thrive assessed: 04/03/22 MOE-7 AMB Questionnaire MOE-7 Date MOE - 7 assessed: 04/03/22 Source: Developed by Drs. César Jackson, Ramonita Fernandes, Cecilio Shepard and colleagues, with an educational vicente from [employer]. Review of Systems Const Denies chills, Denies fatigue, Denies fever(s), Denies headache(s) and Denies weakness ENT Denies dizziness and Denies headache(s) Card Denies chest pain, Denies lightheadedness, Denies dyspnea and Denies other (Palpitations) Resp Denies cough, Denies dyspnea, Denies wheezing and Denies other ( shortness of breath) Musc Denies numbness and Denies tingling Neuro Denies dizziness, Denies headache(s), Denies numbness, Denies tingling, Denies paresthesias and Denies weakness Psych Denies anxiety and Denies depression Endo Denies fatigue Aller/Immun Denies wheezing Physical exam (Primary Care) BMI result Body Mass Index 32.2 Tobacco/Smoking Status: Tobacco use Status Tobacco use date assessed 03/23/23 03/23/23 14:07 Patient Tobacco Use Status Former Tobacco user 06/17/23 08:40 e-Cigarette/Vaping Use Never Used 03/23/23 13:57 Thrive Assessment: Date of Thrive Assessment Date Thrive assessed 04/03/22 03/23/23 13:57 Const General: no acute distress and well developed Nutritional Appearance: well nourished Orientation/consciousness: patient oriented x3 [facility] Head: Yes normocephalic and Yes atraumatic Eyes General: appearance normal, both eyes and all related structures Pupils: Equal, round and reactive pupils present EOM: EOMs intact bilaterally Resp Effort & Inspection: normal respiratory effort Auscultation: clear to auscultation bilaterally Cardio Rate: regular rate Rhythm: regular rhythm Heart sounds: S1 normal heart sound present, S2 normal heart sound present, no gallops, no murmurs and no rubs Neuro General: patient oriented x3 and gait normal Cranial nerves: Yes Equal, round and reactive pupils present Psych Affect: normal affect Assessment and Plan Assessment & Plan (1) Hypertension: Code(s): I10 - Essential (primary) hypertension Qualifiers: Hypertension type: primary hypertension Qualified Code(s): I10 - Essential (primary) hypertension Plan: Blood?pressure?is?controlled.??Goal?is?less?than?140/90 Continue?current?medications (2) Diabetes: Code(s): E11.9 - Type 2 diabetes mellitus without complications Qualifiers: Diabetes mellitus type: type 2 Plan: A1c?6.6%?which?is?still?good?control.??Goal?is?less?than?7.0% Patient?had?some?interruption?in?Trulicity?but?has?had?it?again?and?is?tolerating?it?well. Also?taking?metformin Continue?current?medication?regimen?and?we?can?follow-up?on?this?in?a?few?months. If?she?continues?to?have?better?control,?we?can?consider?reducing?metformin. (3) Hypercholesterolemia: Code(s): E78.00 - Pure hypercholesterolemia, unspecified Plan: LDL?cholesterol?is?still?above?goal?of?less?than?100?for?patient?with?diabetes Will?add?Zetia Follow-up?in?3?months Orders: Orders AMB Hemoglobin A1c Today Z13.9 - Encounter for screening, unspecified Lipid Panel Today E78.00 - Pure hypercholesterolemia, unspecified, Z00.00 - Encounter for general adult medical examination without abnormal findings Comprehensive [place]. Panel Fast Today E78.00 - Pure hypercholesterolemia, unspecified, Z00.00 - Encounter for general adult medical examination without abnormal findings Medications: New ezetimibe (Zetia) 10 mg PO DAILY 90 days 90 tabs 2RF Refilled dulaglutide (Trulicity) 0.75 mg (0.5 mL) subcut QWEEK 28 days 2 mL 4RF zolpidem ER 6.25 mg PO BEDTIME 30 days PRN 30 tabs 0RF insomnia G47.00 - Insomnia, unspecified tramadol [employer] verified. Partial refill upon request. 50 mg PO BID 10 days PRN 20 tabs 0RF pain Coding Level of Care Code Est Pt Level 4 (71613) Diagnoses Primary hypertension I10 Hypertension type: primary hypertension Diabetes E11.9 Diabetes mellitus type: type 2 Hypercholesterolemia E78.00
== END 2023-06-22 12:10 | disposition home or self-care (01) ==
LOC: HO.HMGFM 11:29
PROVIDERS: PCP Family Medicine; Visit Provider Family Medicine
DX: E11.9 Type 2 diabetes mellitus without complications (principal); I10 Essential (primary) hypertension; E78.00 Pure hypercholesterolemia, unspecified
CPT/HCPCS: 83036; 99214

== ENCOUNTER 2023-09-18 11:18 | Outpatient (REF) | payer MEDICARE, SELFPAY ==
[2023-09-18 21:24] LABS: Alanine Aminotransferase 26 U/L (0-31); Albumin Level 4.1 g/dL (3.5-5.0); Alkaline Phosphatase 86 U/L (39-117); Anion Gap 17 (12-20); Aspartate Amino Transferase 30 U/L (5-31); Bilirubin Total 0.5 mg/dL (0.0-1.0); Blood Urea Nitrogen 14 mg/dL (9-16); Calcium 9.3 mg/dL (8.4-10.2); Carbon Dioxide 21 mmol/L (22-29); Chloride 106 mmol/L (96-108); Cholesterol 163 mg/dL (<200); Estimated Glomerular Filt Rate > 60; Glucose Fasting 161 mg/dL (60-99); HDL Cholesterol 52 mg/dL (>40); LDL Cholesterol Calculated 89 mg/dL (<100); Potassium 4.3 mmol/L (3.3-5.1); Sodium 140 mmol/L (135-145); Total Protein 7.7 g/dL (6.5-8.0); Triglycerides 113 mg/dL (<150)
== END 2023-09-18 11:19 | disposition home or self-care (01) ==
LOC: HO.WFDLDS 11:18
PROVIDERS: Visit Provider Family Medicine
DX: Z00.00 Encounter for general adult medical examination without abnormal findings (principal); E78.00 Pure hypercholesterolemia, unspecified
CPT/HCPCS: 36415; 80053; 80061

== ENCOUNTER 2023-09-21 11:19 | Outpatient (AMB) | payer MEDICARE, SELFPAY ==
[2023-09-21 11:25] VITALS: BP 122/80; PULSE 82; O2SAT 95; BMI 32.2
--- NOTE | 2023-09-21 11:25 | MHC.PC.OV ---
Vital Signs 09/21/23 11:25 Height 5 ft 5 in Weight 193 lb 6 oz BMI 32.2 BP 122/80 Blood Pressure Location Rt brachial Position Sitting Pulse 82 Pulse Source Pulse Oximeter Pulse Oximetry (%) 95 Oxygen Delivery Method Room Air Intake Visit Reasons: f/u diabetes, HLD Intake Note: Blanca is a 68 year old female who presents to the office today for a f/u diabetes,HLD. Pt states her main concern is her being tired all the time for the past month. A1C done in office. Allergies penicillin V Allergy (Mild, Verified 09/21/23 11:28) unknown Medication List - Last Reconciled 09/21/23 by Heber Mcneill MD blood sugar diagnostic (FreeStyle Lite Strips) As directed TID blood-glucose meter (FreeStyle Lite Meter kit) As directed clonidine HCl 0.1 mg PO DAILY 30 days dulaglutide (Trulicity) 0.75 mg (0.5 mL) subcut QWEEK 28 days ezetimibe (Zetia) 10 mg PO DAILY 90 days ibuprofen 600 mg PO TID PRN 30 days lancets (FreeStyle Lancets) As directed losartan 50 mg PO DAILY 90 days metformin 500 mg PO DAILY 90 days tramadol 50 mg PO BID PRN 10 days zolpidem ER 6.25 mg PO BEDTIME PRN 30 days Tobacco use date assessed: 09/21/23 Fall risk assessment: No Falls in past year Last assessed Fall Risk: 09/21/23 Dental Screening Dental Screen Date: 09/21/23 Did you have a dental visit in the last 12 months?: Yes Did you have a dental problem in the last 6 months where you did not have access to dental care?: No Was dental information given to patient?: Patient has dentist HPI f/u diabetes, HLD HPI Details 68 y/o female presents to f/u diabetes and hyperlipidemia. Last A1c 06/22/23 6.6%. A1c today 09/21/23 is 6.6%. Labs drawn 09/18/23. Reviewed labs with pt. Triglycerides 113. TC 163. LDL improved from 118 to 89. HDL 52. She is on Zetia 10mg daily and denies any issues with this. Blood pressure today 122/80. She is on losartan 50mg daily. Pt reports fatigue. HPI Comments History of Present Illness Details Documentation assistance for Heber Mcneill MD, was provided by Ferny Garces,? Secretary To Board Of Commissioners on 09/21/2023 at 11:52 AM EST. I, Dr. Mcneill, have read, observed, and verified documentation. [facility] Medical History (Reviewed 09/21/23 @ 11:29 by Saumya Hong [facility]) Bunion, right foot Surgical History H/O toe surgery History of lumbar fusion H/O knee surgery Family History Father Diabetes Mother Pacemaker High blood pressure Sister Mental health disorder Social History Housing: Condominium Alcohol intake: current Alcohol intake frequency: a few times a month Patient Tobacco Use Status: Former Tobacco user e-Cigarette/Vaping Use: Never Used Second Hand Smoke Exposure: No service: No Current occupational status: retired Current occupational exposures/hazards: No Cognitive needs: No Hearing needs: No Vision needs: No Questionnaire PHQ-9 Over the last 2 weeks, how often have you been bothered by any of the following problems? 1. Little interest or pleasure in doing things: not at all 2. Feeling down, depressed, or hopeless: not at all 3. Trouble falling or staying asleep, or sleeping too much: not at all 4. Feeling tired or having little energy: not at all 5. Poor appetite or overeating: not at all 6. Feeling bad about yourself - or that you are a failure or have let yourself or your family down: not at all 7. Trouble concentrating on things, such as reading the newspaper or watching television: not at all 8. Moving or speaking so slowly that other people could have noticed. Or the opposite - being so fidgety or restless that you have been moving around a lot more than usual: not at all 9. Thoughts that you would be better off or of hurting yourself in some way: not at all Total score: 0 Source: Developed by Drs. César Jackson, Ramonita Fernandes, Cecilio Shepard and colleagues, with an educational vicente from [employer]. Thrive Questionnaire Date Thrive assessed: 09/21/23 I am a: Patient What is your living situation today?: I have a steady place to live Within the past 12 months, did the food you bought not last and you didn't have the money to get more?: Never true Within the past 12 months, did you worry whether your food would run out before you got money to buy more?: Never true Do you have trouble paying for medicines?: No Do you have trouble getting transportation to medical appointments?: No Do you have trouble paying your heating and electricity bill?: No Do you have trouble taking care of your child, family member or friend?: No Do you have trouble with day-to-day activities such as bathing, preparing meals, shopping, managing finances, etc.?: No Are you currently unemployed and looking for a job?: No Are you interested in more education?: No THRIVE Score: 0 AUDIT C Alcohol Use Questionnaire (AUDIT-C) 1. How often do you have a drink containing alcohol?: Monthly or less 2. How many drinks containing alcohol do you have on a typical day when you are drinking?: 1 or 2 3. How often do you have six or more drinks on one occasion?: Never Total Score: 1 MOE-7 AMB Questionnaire MOE-7 Date MOE - 7 assessed: 09/21/23 Feeling nervous, anxious, or on edge: 0 = Not at all Not being able to stop or control worryin = Not at all Worrying too much about different things: 0 = Not at all Trouble relaxin = Not at all Being so restless that it is hard to sit still: 0 = Not at all Becoming easily annoyed or irritable: 0 = Not at all Feeling afraid as if something awful might happen: 0 = Not at all Total MOE-7 score (0-4 normal; 5-9 mild; 10-14 moderate; 15-21 severe): 0 Source: Developed by Drs. César Jackson, Ramonita Fernandes, Cecilio Shepard and colleagues, with an educational vicente from [employer]. Review of Systems Const Denies chills, Reports fatigue, Denies fever(s), Denies headache(s) and Denies weakness ENT Denies dizziness and Denies headache(s) Card Denies dyspnea Resp Denies cough, Denies dyspnea, Denies wheezing and Denies other (shortness of breath) Musc Denies numbness and Denies tingling Neuro Denies dizziness, Denies headache(s), Denies numbness, Denies tingling and Denies weakness Psych Denies anxiety and Denies depression Endo Reports fatigue Aller/Immun Denies wheezing Physical exam (Primary Care) Vital Signs: Last Vital Signs Pulse 82 09/21/23 11:25 BP 122/80 09/21/23 11:25 Pulse Ox 95 09/21/23 11:25 Oxygen Delivery Method Room Air 09/21/23 11:25 BMI result Body Mass Index 32.2 Tobacco/Smoking Status: Tobacco use Status Tobacco use date assessed 09/21/23 09/21/23 11:33 Patient Tobacco Use Status Former Tobacco user 09/21/23 11:33 e-Cigarette/Vaping Use Never Used 09/21/23 11:33 PHQ-9: PHQ-9 Score PHQ-9: Total score 0 09/21/23 11:46 Thrive Assessment: Date of Thrive Assessment Date Thrive assessed 09/21/23 09/21/23 11:33 Const General: well developed; No acute distress Nutritional Appearance: well nourished Orientation/consciousness: patient oriented x3 HENMT Head: Yes normocephalic and Yes atraumatic Eyes General: appearance normal, both eyes and all related structures Pupils: Equal, round and reactive pupils present EOM: EOMs intact bilaterally Resp Effort & Inspection: normal respiratory effort Auscultation: clear to auscultation bilaterally Cardio Rate: regular rate Rhythm: regular rhythm Heart sounds: S1 normal heart sound present, S2 normal heart sound present, no gallops, no murmurs and no rubs Neuro General: patient oriented x3 and gait normal Cranial nerves: Yes Equal, round and reactive pupils present Psych Affect: normal affect Results AMB Hemoglobin A1c AMB Hemoglobin A1c 6.6 % Last Edit by Saumya Hong CMA on 09/21/23 11:41 Results Reviewed Results Reviewed: Laboratory Last Values Hgb A1c (Clinic) 6.6 % (4.0-6.0) H 09/21/23 11:34 Assessment and Plan Assessment & Plan (1) Diabetes: Code(s): E11.9 - Type 2 diabetes mellitus without complications Qualifiers: Diabetes mellitus type: type 2 Plan: A1c?6.6%; stable?and?controlled.??Goal?is?less?than?7.0% She?is?hoping?to?decrease?metformin.??Will?increase?Trulicity. If?A1c?is?improving,?we?can?try?decreasing?her?metformin?at?next?visit She?will?return?in?3?months?to?follow-up (2) Hypertension: Code(s): I10 - Essential (primary) hypertension Qualifiers: Hypertension type: primary hypertension Qualified Code(s): I10 - Essential (primary) hypertension Plan: Blood?pressure?is?controlled.??Goal?is?less?than?140/90 Continue?current?medication (3) Hypercholesterolemia: Code(s): E78.00 - Pure hypercholesterolemia, unspecified Plan: LDL?was?above?goal?of?less?than?100?for?patient?with?diabetes. Had?started?her?on?Zetia.??LDL?now?less?than?100 Continue?current?medication (4) Fatigue: Code(s): R53.83 - Other fatigue Plan: New?fatigue Symptoms?not?consistent?with?sleep?apnea Sleeping?well?with?zolpidem but?still?has?fatigue Check?labs Orders: Orders Vitamin B12 and Folate Today E53.8 - Deficiency of other specified B group vitamins, R53.83 - Other fatigue Vitamin D 25-OH Total Today E55.9 - Vitamin D deficiency, unspecified, R53.83 - Other fatigue TSH reflex Free T4 Today R53.83 - Other fatigue, Z00.00 - Encounter for general adult medical examination without abnormal findings AMB Hemoglobin A1c Today E11.9 - Type 2 diabetes mellitus without complications Comprehensive Archer. Panel Fast Today R53.83 - Other fatigue, Z00.00 - Encounter for general adult medical examination without abnormal findings Complete Blood Count Auto Diff Today R53.83 - Other fatigue, Z00.00 - Encounter for general adult medical examination without abnormal findings Erythrocyte Sedimentation Rate Today R53.83 - Other fatigue Medications: Changed From dulaglutide (Trulicity) 0.75 mg (0.5 mL) subcut QWEEK 28 days 2 mL 4RF To dulaglutide 1.5 mg (0.5 mL) subcut QWEEK 28 days 2 mL 4RF Coding Level of Care Code Est Pt Level 4 (53706) Diagnoses Diabetes E11.9 Diabetes mellitus type: type 2 Primary hypertension I10 Hypertension type: primary hypertension Hypercholesterolemia E78.00 Fatigue R53.83
== END 2023-09-21 12:02 | disposition home or self-care (01) ==
PROVIDERS: PCP Family Medicine; Visit Provider Family Medicine
DX: E11.9 Type 2 diabetes mellitus without complications (principal); I10 Essential (primary) hypertension; E78.00 Pure hypercholesterolemia, unspecified; R53.83 Other fatigue
CPT/HCPCS: 83036; 99214

== ENCOUNTER 2023-09-23 08:02 | Outpatient (AMB) | payer MEDICARE, SELFPAY ==
--- NOTE | 2023-09-23 08:10 | MHC.OFFWIV ---
Intake Vital Signs 09/23/23 08:14 Height 5 ft 5 in Weight 193 lb 4 oz BMI 32.2 BP 132/74 Blood Pressure Location Lt brachial Position Sitting Respiration 16 Pulse 102 H Pulse Source Pulse Oximeter Temp 99.5 F Temp Source Oral Pulse Oximetry (%) 95 Oxygen Delivery Method Room Air Intake Visit Reasons: est/ sore throat sinus possible covid? Intake Note: patient here c/o a little soar throat and sinus pressure she took 2 covid test and they came out negative. Patient Tobacco Use Status: Former Tobacco user Is last menstrual period known: No Post menopausal: No Patient : No Allergies penicillin V Allergy (Mild, Verified 09/23/23 08:42) unknown Do you need a note to return to daycare/school/sports/work: Yes HPI HPI Comments History of Present Illness Details Here today for cold like sx started on Thursday night sore throat, sinus pain cough and feeling hot, pressure under eyes on right side home covid test negative x 2 tried nsaid w/o relief awake alert nad Sclera and conjunctiva clear bilat Nares patent, turbinates pale & edematous, + right max sinus tenderness with palpation TM intact with trace effusions bilat MMM, pharynx WNL RRR LS CTAB Plan: treat for suspected sinus infection w/ Zpak reports responding well to this in the past tessalon for cough fu in 10 days if no better or worse PFSH Medical History Bunion, right foot Surgical History H/O toe surgery History of lumbar fusion H/O knee surgery Family History Father Diabetes Mother Pacemaker High blood pressure Sister Mental health disorder Social History Housing: Condominium Alcohol intake: current Alcohol intake frequency: a few times a month Patient Tobacco Use Status: Former Tobacco user e-Cigarette/Vaping Use: Never Used Second Hand Smoke Exposure: No Patient : No service: No Current occupational status: retired Current occupational exposures/hazards: No Cognitive needs: No Hearing needs: No Vision needs: No Physical Exam Vital Signs: Last Vital Signs Temp 99.5 F 09/23/23 08:14 Pulse 102 H 09/23/23 08:14 Resp 16 09/23/23 08:14 BP 132/74 09/23/23 08:14 Pulse Ox 95 09/23/23 08:14 Oxygen Delivery Method Room Air 09/23/23 08:14 BMI result Body Mass Index 32.2 Assessment & Plan Assessment & Plan (1) Acute bacterial sinusitis: Code(s): J01.90 - Acute sinusitis, unspecified; B96.89 - Other specified bacterial agents as the cause of diseases classified elsewhere Plan: . Plan . Medications: New azithromycin For 250 mg dose pack: take 500 mg today (day 1), then 250 mg for 4 days (days 2-5) PO 5 days 6 tabs 0RF benzonatate 100 mg PO TID 10 days PRN 30 caps 1RF cough Patient Instructions: What Is It? Sinuses are air-filled spaces behind the bones of the upper face: between the eyes and behind the forehead, nose and cheeks. The lining of the sinuses are made up of cells with tiny hairs on their surfaces called cilia. Other cells in the lining produce mucus. The mucus traps germs and pollutants and the cilia push the mucus out through narrow sinus openings into the nose. When the sinuses become inflamed or infected, the mucus thickens and clogs the openings to one or more sinuses. Fluid builds up inside the sinuses causing increased pressure. Also bacteria can become trapped, multiply and infect the lining. This is sinusitis. Prevention There are some measures you can take to decrease your risk of developing sinusitis. If you smoke cigarettes, you should quit. The smoke can irritate nasal passageways and increase the likelihood of infection. Nasal allergies can trigger sinus infections, too. By identifying the allergen (the substance causing the allergic reaction) and avoiding it, you can help prevent sinusitis. If you have congestion from a cold or allergies, the following may help to reduce the risk of developing sinusitis: Drink lots of water. This thins nasal secretions and keeps mucous membranes moist. Use steam to soothe nasal passages. Breathe deeply while standing in a hot shower, or inhale the vapor from a basin filled with hot water while holding a towel over your head. Avoid blowing your nose with great force, which can push bacteria into the sinuses. Some doctors advise periodic home nasal washings to clear secretions. This may help prevent, and also treat, sinus infections. Treatment Many sinus infections improve without treatment. However, several medications may speed recovery and reduce the chance that an infection will become chronic. Decongestants - Congestion often triggers sinus infections, and decongestants can open the sinuses and allow them to drain. Several are available: Pseudoephedrine (Sudafed) is available without prescription, alone or in combination with other medications in multi-symptom cold and sinus remedies. Pseudoephedrine can cause insomnia, racing pulse and jitteriness. Do not use if you have high blood pressure or a heart condition. Phenylephrine (such as Sudafed PE) is an alternative zwhy-ohk-wzbnakp oral decongestant. If you take products containing oral phenylephrine, check with the pharmacist to be certain there is no interaction with other medications you take. Oxymetazoline (Afrin, Dristan and others) and phenylephrine (Sujit-Synephrine and others) are found in nasal sprays. They are effective and may be less likely to cause the side effects seen with pseudoephedrine. However, using a nasal decongestant for more than three days can cause worse symptoms when you stop the medication. This is called the rebound effect. Antihistamines - These medications help to relieve the symptoms of nasal allergies that lead to inflammation and infections. However, some doctors advise against using antihistamines during a sinus infection because they can cause excessive drying and slow the drainage process. Jrku-vjo-rvjzmfa antihistamines include diphenhydramine (Benadryl and others), chlorpheniramine (Chlor-Trimeton and others) and loratadine (Claritin). Fexofenadine (Alana) and cetrizine (Zyrtec) are available by prescription. Nasal steroids - Anti-inflammatory sprays such as mometasone (Nasonex) and fluticasone (Flonase), both available by prescription, reduce swelling of nasal membranes. Like antihistamines, nasal steroids can be most useful for those who have nasal allergies. Nasal steroids tend to produce less drying than antihistamines. Unlike nasal decongestants, nasal steroids can be used for prolonged periods. Saline nasal sprays - These salt-water sprays are safe to use and can provide some relief by adding moisture to the nasal passages, thinning mucus secretions and helping to flush out any bacteria that may be present. Pain relievers - Acetaminophen (Tylenol), ibuprofen (Advil, Motrin and others) or naproxen (Aleve) can be taken sinus pain. Antibiotics - Your doctor may prescribe an antibiotic if he or she suspects that a bacterial infection is causing your sinusitis. If you start taking an antibiotic, complete the entire course so that the infection is completely killed off. Not all cases of sinusitis require antibiotic treatment: Talk with your doctor about whether an antibiotic is right for you. Keep in mind that antibiotics can cause side effects, such as allergic reactions, rash and diarrhea. In addition, overusing antibiotics eventually leads to the spread of bacteria that no longer can be killed by the most commonly prescribed antibiotics. When To Call A Professional Contact a doctor if you experience facial pain along with a headache and fever, cold symptoms that last longer than seven to 10 days, or persistent green discharge from the nose. If your symptoms don't improve within a week of beginning treatment, call your doctor. Call sooner if symptoms are getting worse. If you have repeated bouts of acute sinusitis, you may have allergies or another treatable cause of sinus congestion. Ask your doctor for advice. Coding Level of Care Code Est Pt Level 3 (70831) Diagnoses Acute bacterial sinusitis J01.90; B96.89
[2023-09-23 08:14] VITALS: BP 132/74; PULSE 102; RESP 16; TEMP 37.5; O2SAT 95; BMI 32.2
== END 2023-09-23 08:47 | disposition home or self-care (01) ==
PROVIDERS: PCP Family Medicine; Visit Provider Nurse Practitioner Family
DX: J01.90 Acute sinusitis, unspecified (principal); B96.89 Other specified bacterial agents as the cause of diseases classified elsewhere
CPT/HCPCS: 99213

== ENCOUNTER 2023-10-19 08:58 | Outpatient (REF) | payer MEDICARE, SELFPAY ==
[2023-10-19 11:45] LABS: Appearance Urine Cloudy; Color Urine Yellow; Glucose Urine UA Negative (Negative); Leukocyte Esterase Urine Small (1+) (Negative); Nitrite Urine Negative (Negative); PH 6.5 (5.0-9.0); UMIC TRIGGER UA YES; Urine Blood Negative (Negative); Urine Ketones Negative (Negative); Urine Protein Trace mg/dL (Neg-Trace)
[2023-10-19 11:45] LABS: MANUAL DIFF FLAG NO
[2023-10-19 11:50] LABS: Basophils Absolute Auto 0.1 X10*3/uL (0.0-0.2); Basophils Percent Auto 0.6 % (0-2); Eosinophils Absolute Auto 0.3 X10*3/uL (0.0-0.4); Hematocrit 42.6 % (37.0-47.0); Hemoglobin 14.2 g/dl (12.0-16.0); Imm Gran Abs Auto 0.04 X10*3/uL (0.00-0.03); Imm Gran Pct Auto 0.4 % (0.0-0.4); Lymphocytes Absolute Auto 2.3 X10*3/uL (1.2-4.9); Lymphocytes Percent Auto 23.2 % (20-40); Mean Corpuscular HGB Conc 33.3 g/dl (31.0-35.0); Mean Corpuscular Hemoglobin 31.1 pg (27.0-33.0); Mean Corpuscular Volume 93.2 fL (80.0-98.0); Mean Platelet Volume 9.7 fL (9.4-12.3); Monocytes Absolute Auto 0.8 X10*3/uL (0.1-1.2); Monocytes Percent Auto 8.3 % (2-11); Neutrophils Absolute Auto 6.3 x10*3/uL (2.0-8.3); Neutrophils Percent Auto 64.5 % (45-73); Platelet Count 254 X10*3/uL (160-400); Red Blood Count 4.57 X10*6/uL (4.20-5.50); Red Cell Distribution Width 12.7 % (11.0-16.0); White Blood Count 9.8 X10*3/uL (4.8-10.8)
[2023-10-19 12:00] LABS: Bacteria Urine 4+ (None Seen); RBC Urine 0-2 /HPF (0-2); Squamous Epithelial Cell Urine >20 /HPF (0-2)
[2023-10-19 12:13] LABS: Alanine Aminotransferase 19 U/L (0-31); Albumin Level 4.3 g/dL (3.5-5.0); Alkaline Phosphatase 83 U/L (39-117); Anion Gap 15 (12-20); Aspartate Amino Transferase 22 U/L (5-31); Bilirubin Total 0.6 mg/dL (0.0-1.0); Blood Urea Nitrogen 12 mg/dL (9-16); Calcium 9.8 mg/dL (8.4-10.2); Carbon Dioxide 25 mmol/L (22-29); Chloride 105 mmol/L (96-108); Estimated Glomerular Filt Rate > 60; Glucose Fasting 155 mg/dL (60-99); Potassium 3.8 mmol/L (3.3-5.1); Sodium 141 mmol/L (135-145); Total Protein 7.9 g/dL (6.5-8.0)
[2023-10-19 12:26] LABS: Erythrocyte Sedimentation Rate 19 MM/HR (0-20)
[2023-10-19 12:30] LABS: TSH reflex Free T4 2.42 uIU/mL (0.32-4.0); Vitamin D 25-OH Total 44.3 ng/mL (>30)
[2023-10-19 12:33] LABS: Folate 13.1 ng/mL (> or = 4.0); Vitamin B12 400 pg/mL (200-900)
== END 2023-10-19 08:59 | disposition home or self-care (01) ==
LOC: HO.WFDLDS 08:58
PROVIDERS: Visit Provider Family Medicine
DX: Z00.00 Encounter for general adult medical examination without abnormal findings (principal); E55.9 Vitamin D deficiency, unspecified; R53.83 Other fatigue; E53.8 Deficiency of other specified B group vitamins
CPT/HCPCS: 36415; 80053; 81001; 82306; 82607; 82746; 84443; 85025; 85652

== ENCOUNTER → 2023-10-23 12:57 | Outpatient (AMB) | payer MEDICARE, SELFPAY ==
--- NOTE | 2023-10-23 12:46 | A.OFFPC_ITS ---
Intake Visit Reasons: f/u fatigue via telemedicine Intake Note: f/u with fatigue med refill for zolpidem Allergies penicillin V Allergy (Mild, Verified 09/23/23 08:42) unknown Tobacco use date assessed: 09/21/23 Dental Screening Dental Screen Date: 09/21/23 HPI f/u fatigue via telemedicine HPI Details TeleMedicine?appointment?to?review?labs regarding?fatigue. Of?note,?patient?had?had?urinary?symptoms?and?urinalysis?was?suspicious?for?UTI. Also,?recently,?patient?had?had?a?sinus?infection?which?was?treated. Lab?work?reveals?no?anemia?or?electrolyte?imbalance.??Thyroid?levels?are?within? normal?limits Fasting?blood?sugar?is?elevated.??Patient?has?diabetes.?? A1c?at?prior?Check?showed?good?control. Urine?culture?was?not?convincing?for?UTI?but?she?is?almost?finished?with?antibio tic?and?has?been?hydrating?well. [facility] Medical History Bunion, right foot Surgical History H/O toe surgery History of lumbar fusion H/O knee surgery Family History Father Diabetes Mother Pacemaker High blood pressure Sister Mental health disorder Social History Housing: Condominium Alcohol intake: current Alcohol intake frequency: a few times a month Patient Tobacco Use Status: Former Tobacco user e-Cigarette/Vaping Use: Never Used Second Hand Smoke Exposure: No service: No Current occupational status: retired Current occupational exposures/hazards: No Cognitive needs: No Hearing needs: No Vision needs: No Questionnaire Thrive Questionnaire Date Thrive assessed: 09/21/23 MOE-7 AMB Questionnaire MOE-7 Date MOE - 7 assessed: 09/21/23 Source: Developed by Drs. César Jackson, Ramonita Fernandes, Cecilio Shepard and colleagues, with an educational vicente from [employer]. Review of Systems Const Denies chills, Denies fatigue, Denies fever(s), Denies headache(s) and Denies weakness ENT Denies dizziness and Denies headache(s) Card Denies chest pain, Denies lightheadedness, Denies dyspnea and Denies other (Palpitations) Resp Denies cough, Denies dyspnea, Denies wheezing and Denies other ( shortness of breath) Details: Urinary?symptoms?seem?to?be?improving Musc Denies numbness and Denies tingling Neuro Denies dizziness, Denies headache(s), Denies numbness, Denies tingling, Denies paresthesias and Denies weakness Psych Denies anxiety and Denies depression Endo Denies fatigue Aller/Immun Denies wheezing Physical exam (Primary Care) Tobacco/Smoking Status: Tobacco use Status Tobacco use date assessed 09/21/23 10/23/23 12:53 Patient Tobacco Use Status Former Tobacco user 10/23/23 12:53 e-Cigarette/Vaping Use Never Used 10/23/23 12:53 Thrive Assessment: Date of Thrive Assessment Date Thrive assessed 09/21/23 10/23/23 12:53 Telehealth Telehealth Telehealth Platform: Telephone Location of provider rendering services: practice address Location of patient: address on file Patient Identification confirmed using: Name, : Yes Telehealth method: voice only Patient verbally consented to treatment: Yes Patient verbally consented to billing insurance company: Yes Patient informed of any privacy concerns related to visit: Yes Minutes spent on Phone/Video with Pt.: 6 Assessment and Plan Assessment & Plan (1) Fatigue: Code(s): R53.83 - Other fatigue Plan: Patient?still?has?some?fatigue. No ?obvious?explanation?on?her?lab?work?though?her?urinalysis?had?appeared?suspicio us?for?UTI?and?this?was?treated?with?Macrobid. She?would?also?recently?had?a?sinus?infection. Possible?that?fatigue?was?secondary?to?infections. She?will?let?me?know?if?not?improving?when?I?see?her?at?her?next?visit?for?diabe pete?in?November. Also,?of?note, she?has?already?had?a?sleep?study?in?the?past. Medications: New semaglutide (Ozempic) 1 mg (0.75 mL) subcut QWEEK 3 mL 3RF 28 days Refilled zolpidem ER 6.25 mg PO BEDTIME PRN 30 tabs 0RF insomnia 30 days G47.00 - Insomnia, unspecified Discontinued dulaglutide Discontinued Reason: Doctor's Order 1.5 mg (0.5 mL) subcut QWEEK 28 days 2 mL 4RF Coding Level of Care Code Tele Est Pt Level 2 (94118) Diagnoses Fatigue R53.83
== END ==
LOC: HO.HMGFM 12:57
PROVIDERS: PCP Family Medicine; Visit Provider Family Medicine
DX: R53.83 Other fatigue (principal)
CPT/HCPCS: G2012

== ENCOUNTER 2023-12-28 10:43 | Outpatient (AMB) | payer MEDICARE, SELFPAY ==
--- NOTE | 2023-12-28 11:03 | A.OFFPC_ITS ---
Vital Signs 12/28/23 11:13 Height 5 ft 2.6 in Weight 190 lb BMI 34.1 BP 124/63 Blood Pressure Location Rt brachial Position Sitting Respiration 16 Pulse 83 Pulse Source Pulse Oximeter Temp 97.7 F Temp Source Temporal Artery Scan Pulse Oximetry (%) 98 Oxygen Delivery Method Room Air Intake Visit Reasons: Blood work check up Intake Note: F/U DM Allergies penicillin V Allergy (Mild, Verified 12/28/23 11:12) unknown Medication List - Last Reviewed 12/28/23 by FRANSISCO Ko benzonatate 100 mg PO TID PRN 10 days blood sugar diagnostic (FreeStyle Lite Strips) As directed TID blood-glucose meter (FreeStyle Lite Meter kit) As directed clonidine HCl 0.1 mg PO DAILY 30 days ezetimibe (Zetia) 10 mg PO DAILY 90 days ibuprofen 600 mg PO TID PRN 30 days lancets (FreeStyle Lancets) As directed losartan 50 mg PO DAILY 90 days metformin 500 mg PO DAILY 90 days semaglutide (Ozempic) 1 mg (0.75 mL) subcut QWEEK 28 days tramadol 50 mg PO BID PRN 10 days zolpidem ER 6.25 mg PO BEDTIME PRN 30 days Tobacco use date assessed: 09/21/23 Dental Screening Dental Screen Date: 09/21/23 HPI Blood work check up HPI Details 68 y/o female presents to f/u diabetes, labs. Prior A1c 6.6%. A1c today 12/28/23 6.2%. She is on metformin, ozempic. [facility] Medical History Bunion, right foot Surgical History H/O toe surgery History of lumbar fusion H/O knee surgery Family History Father Diabetes Mother Pacemaker High blood pressure Sister Mental health disorder Social History Housing: Condominium Alcohol intake: current Alcohol intake frequency: a few times a month Patient Tobacco Use Status: Former Tobacco user e-Cigarette/Vaping Use: Never Used Second Hand Smoke Exposure: No service: No Current occupational status: retired Current occupational exposures/hazards: No Cognitive needs: No Hearing needs: No Vision needs: No Questionnaire PHQ-9 Over the last 2 weeks, how often have you been bothered by any of the following problems? 1. Little interest or pleasure in doing things: not at all 2. Feeling down, depressed, or hopeless: not at all 3. Trouble falling or staying asleep, or sleeping too much: not at all 4. Feeling tired or having little energy: more than half the days 5. Poor appetite or overeating: not at all 6. Feeling bad about yourself - or that you are a failure or have let yourself or your family down: not at all 7. Trouble concentrating on things, such as reading the newspaper or watching television: not at all 8. Moving or speaking so slowly that other people could have noticed. Or the opposite - being so fidgety or restless that you have been moving around a lot more than usual: not at all 9. Thoughts that you would be better off or of hurting yourself in some way: not at all Total score: 2 Depression Screening Interpretation: Negative Depression Screening Done: Yes 31097 - PHQ-9 Billing: Yes Source: Developed by Drs. César Jackson, Ramonita Fernandes, Cecilio Shepard and colleagues, with an educational vicente from [employer]. Thrive Questionnaire Date Thrive assessed: 12/28/23 I am a: Patient What is your living situation today?: I have a steady place to live Within the past 12 months, did the food you bought not last and you didn't have the money to get more?: Never true Within the past 12 months, did you worry whether your food would run out before you got money to buy more?: Never true Do you have trouble paying for medicines?: Yes Do you have trouble getting transportation to medical appointments?: No Do you have trouble paying your heating and electricity bill?: Yes Do you have trouble taking care of your child, family member or friend?: No Do you have trouble with day-to-day activities such as bathing, preparing meals, shopping, managing finances, etc.?: No Are you currently unemployed and looking for a job?: No Are you interested in more education?: No Please select the resources that you would like help with: Paying for medicine Currently or been in a relationship where the following occur: I choose not to answer THRIVE Score: 1 AUDIT C Alcohol Use Questionnaire (AUDIT-C) 1. How often do you have a drink containing alcohol?: 2-3 times a week 2. How many drinks containing alcohol do you have on a typical day when you are drinking?: 1 or 2 3. How often do you have six or more drinks on one occasion?: Never Total Score: 3 MOE-7 AMB Questionnaire MOE-7 Date MOE - 7 assessed: 12/28/23 Feeling nervous, anxious, or on edge: 0 = Not at all Not being able to stop or control worryin = Not at all Worrying too much about different things: 0 = Not at all Trouble relaxin = Not at all Being so restless that it is hard to sit still: 0 = Not at all Becoming easily annoyed or irritable: 0 = Not at all Feeling afraid as if something awful might happen: 0 = Not at all Total MOE-7 score (0-4 normal; 5-9 mild; 10-14 moderate; 15-21 severe): 0 Source: Developed by Drs. César Jackson, Ramonita Fernandes, Cecilio Shepard and colleagues, with an educational vicente from [employer]. Review of Systems Const Denies chills, Denies fatigue, Denies fever(s), Denies headache(s) and Denies weakness ENT Denies dizziness and Denies headache(s) Card Denies dyspnea Resp Denies cough, Denies dyspnea, Denies wheezing and Denies other (shortness of breath) Musc Denies numbness and Denies tingling Neuro Denies dizziness, Denies headache(s), Denies numbness, Denies tingling and Denies weakness Psych Denies anxiety and Denies depression Endo Denies fatigue Aller/Immun Denies wheezing Physical exam (Primary Care) Vital Signs: Last Vital Signs Temp 97.7 F 12/28/23 11:13 Pulse 83 12/28/23 11:13 Resp 16 12/28/23 11:13 BP 124/63 12/28/23 11:13 Pulse Ox 98 12/28/23 11:13 Oxygen Delivery Method Room Air 12/28/23 11:13 BMI result Body Mass Index 34.1 Tobacco/Smoking Status: Tobacco use Status Tobacco use date assessed 09/21/23 12/28/23 11:06 Patient Tobacco Use Status Former Tobacco user 12/28/23 11:06 e-Cigarette/Vaping Use Never Used 12/28/23 11:06 PHQ-9: PHQ-9 Score PHQ-9: Total score 2 12/28/23 11:34 Depression Screening Interpretation: Negative Thrive Assessment: Date of Thrive Assessment Date Thrive assessed 12/28/23 12/28/23 11:19 Currently or been in a relationship where the following occur: I choose not to answer Const General: well developed; No acute distress Nutritional Appearance: well nourished Orientation/consciousness: patient oriented x3 HENMT Head: Yes normocephalic and Yes atraumatic Eyes General: appearance normal, both eyes and all related structures Pupils: Equal, round and reactive pupils present EOM: EOMs intact bilaterally Resp Effort & Inspection: normal respiratory effort Neuro General: patient oriented x3 and gait normal Cranial nerves: Yes Equal, round and reactive pupils present Psych Affect: normal affect Results AMB Hemoglobin A1c AMB Hemoglobin A1c 6.2 % Last Edit by FRANSISCO Ko on 12/28/23 11:27 Results Reviewed Results Reviewed: Laboratory Last Values Hgb A1c (Clinic) 6.2 % (4.0-6.0) H 12/28/23 11:22 Coding Level of Care Code Est Pt Level 3 (50000) Diagnoses Diabetes E11.9 Diabetes mellitus type: type 2 Primary hypertension I10 Hypertension type: primary hypertension Immunization counseling Z71.85 Assessment & Plan Assessment & Plan (1) Diabetes: Code(s): E11.9 - Type 2 diabetes mellitus without complications Category: Medical Qualifiers: Diabetes mellitus type: type 2 Plan: A1c?has?improved?to?6.2%.??Goal?is?less?than?7.0%.??Good?control. However,?patient?notes?that?she?did?have?a?gap?in?her?ability?to?get?Ozempic. Continue?current?medication Continue?diabetic?diet?and?exercise Recent?eye?exam?in?early?November?showed?no?diabetic?retinopathy. Patient?requests?freestyle?meter?which?I?have?ordered. (2) Hypertension: Code(s): I10 - Essential (primary) hypertension Category: Medical Qualifiers: Hypertension type: primary hypertension Qualified Code(s): I10 - Essential (primary) hypertension Plan: Blood?pressure?is?controlled.??Goal?is?less?than?140/90 Continue?current?medication (3) Immunization counseling: Code(s): Z71.85 - Encounter for immunization safety counseling Category: Medical Plan: Due?for?flu?shot Ordered and?she?will?receive?this?in?the?office?today. Plan Patient?had?noted?fatigue?at?last?visit.??She?had?had?a?urinary?tract Infection?which?was?treated. Fatigue?has?resolved Orders: Orders Influenza [id number] Immunization Today Z23 - Encounter for immunization AMB Hemoglobin A1c Today E11.9 - Type 2 diabetes mellitus without complications Medications: New Fluarix Triv [id number] (PF) (flu vacc [id number] 6mos up(PF)) 0.5 mL IM ONCE 0.5 mL 0RF NS Z23 - Encounter for immunization blood-glucose meter (FreeStyle Lite Meter kit) DX: E11.9, test blood sugar once a day, duration 999 days 1 ea 0RF E11.9 - Type 2 diabetes mellitus without complications lancets (FreeStyle Lancets) As directed 100 ea 4RF DX: E11.9, test blood sugar once a day, 90 day E11.9 - Type 2 diabetes mellitus without complications blood sugar diagnostic (FreeStyle Lite Strips) DX: E11.9, test blood sugar once a day, 90 days 100 ea 4RF E11.9 - Type 2 diabetes mellitus without complications Refilled clonidine HCl 0.1 mg PO DAILY 30 days 30 tabs 2RF
[2023-12-28 11:13] VITALS: BP 124/63; PULSE 83; RESP 16; TEMP 36.5; O2SAT 98; BMI 34.1
== END 2023-12-28 11:56 | disposition home or self-care (01) ==
PROVIDERS: PCP Family Medicine; Visit Provider Family Medicine
DX: E11.9 Type 2 diabetes mellitus without complications (principal); I10 Essential (primary) hypertension; Z71.85 Encounter for immunization safety counseling; Z23 Encounter for immunization

== ENCOUNTER → 2023-12-28 10:43 | Outpatient (BNVA) | payer MEDICARE, SELFPAY | PROVIDERS: PCP Family Medicine; Visit Provider Family Medicine | DX: Z23 Encounter for immunization (principal); E11.9 Type 2 diabetes mellitus without complications; I10 Essential (primary) hypertension; Z71.85 Encounter for immunization safety counseling | CPT/HCPCS: 83036; 90471; 90656; 96127; 99212 ==

== ENCOUNTER 2024-03-29 09:25 | Outpatient (AMB) | payer BC, SELFPAY ==
--- NOTE | 2024-03-29 09:43 | A.OFFPC_ITS ---
Vital Signs 03/29/24 09:45 Height 5 ft 2.6 in Weight 189 lb 6 oz BMI 34.0 BP 120/64 Blood Pressure Location Lt brachial Position Sitting Respiration 14 Pulse 80 Pulse Source Pulse Oximeter Temp 97.9 F Temp Source Oral Pulse Oximetry (%) 98 Oxygen Delivery Method Room Air Intake Visit Reasons: f/u diabetes Intake Note: f/u diabetes Allergies penicillin V Allergy (Mild, Verified 03/29/24 09:44) unknown Medication List - Last Reconciled 03/29/24 by Heber Mcneill MD blood sugar diagnostic (FreeStyle Lite Strips) As directed TID blood sugar diagnostic (FreeStyle Lite Strips) DX: E11.9, test blood sugar once a day, 90 days blood-glucose meter (FreeStyle Lite Meter kit) As directed blood-glucose meter (FreeStyle Lite Meter kit) DX: E11.9, test blood sugar once a day, duration 999 days clonidine HCl 0.1 mg PO DAILY 30 days ezetimibe (Zetia) 10 mg PO DAILY 90 days ibuprofen 600 mg PO TID PRN 30 days lancets (FreeStyle Lancets) As directed lancets (FreeStyle Lancets) As directed losartan 50 mg PO DAILY 90 days metformin 500 mg PO DAILY 90 days semaglutide (Ozempic) 1 mg (0.75 mL) subcut QWEEK 28 days tramadol 50 mg PO BID PRN 10 days zolpidem ER 6.25 mg PO BEDTIME PRN 30 days Tobacco use date assessed: 09/21/23 Dental Screening Dental Screen Date: 09/21/23 HPI f/u diabetes HPI Details 68 y/o female presents to f/u diabetes a nd hypertension. Last A1c 12/28/23 6.2%. A1c 6.3%. She is on Ozempic, metformin 500mg daily. Continues to watch the sugars and starches in her diet. Diabetic eye exam in November showed no diabetic retinopathy. Blood pressure today 120/64, 80. She is on losartan 50mg daily. HPI Comments History of Present Illness Details Documentation assistance for Heber Mcneill MD, was provided by Ferny Garces,? Vocational Rehabilitation Counselor on 03/29/2024 at 9:54 AM EST. I, Dr. Mcneill, have read, observed, and verified documentation. [facility] Medical History Bunion, right foot Surgical History H/O toe surgery History of lumbar fusion H/O knee surgery Family History Father Diabetes Mother Pacemaker High blood pressure Sister Mental health disorder Social History Housing: Condominium Alcohol intake: current Alcohol intake frequency: a few times a month Patient Tobacco Use Status: Former Tobacco user e-Cigarette/Vaping Use: Never Used Second Hand Smoke Exposure: No service: No Current occupational status: retired Current occupational exposures/hazards: No Cognitive needs: No Hearing needs: No Vision needs: No Questionnaire PHQ-9 Over the last 2 weeks, how often have you been bothered by any of the following problems? 1. Little interest or pleasure in doing things: not at all 2. Feeling down, depressed, or hopeless: not at all 3. Trouble falling or staying asleep, or sleeping too much: not at all 4. Feeling tired or having little energy: several days 5. Poor appetite or overeating: not at all 6. Feeling bad about yourself - or that you are a failure or have let yourself or your family down: not at all 7. Trouble concentrating on things, such as reading the newspaper or watching television: not at all 8. Moving or speaking so slowly that other people could have noticed. Or the opposite - being so fidgety or restless that you have been moving around a lot more than usual: not at all 9. Thoughts that you would be better off or of hurting yourself in some way: not at all Total score: 1 Source: Developed by Drs. César Jackson, Ramonita Fernandes, Cecilio Shepard and colleagues, with an educational vicente from [employer]. Thrive Questionnaire Date Thrive assessed: 12/28/23 I am a: Patient What is your living situation today?: I have a steady place to live Within the past 12 months, did the food you bought not last and you didn't have the money to get more?: Never true Within the past 12 months, did you worry whether your food would run out before you got money to buy more?: Never true Do you have trouble paying for medicines?: Yes Do you have trouble getting transportation to medical appointments?: Yes Do you have trouble paying your heating and electricity bill?: No Do you have trouble taking care of your child, family member or friend?: No Do you have trouble with day-to-day activities such as bathing, preparing meals, shopping, managing finances, etc.?: No Are you currently unemployed and looking for a job?: No Are you interested in more education?: No Please select the resources that you would like help with: None Currently or been in a relationship where the following occur: No concerns reported THRIVE Score: 1 AUDIT C Alcohol Use Questionnaire (AUDIT-C) 1. How often do you have a drink containing alcohol?: 2-3 times a week 2. How many drinks containing alcohol do you have on a typical day when you are drinking?: 1 or 2 3. How often do you have six or more drinks on one occasion?: Never Total Score: 3 MOE-7 AMB Questionnaire MOE-7 Date MOE - 7 assessed: 12/28/23 Feeling nervous, anxious, or on edge: 0 = Not at all Not being able to stop or control worryin = Not at all Worrying too much about different things: 0 = Not at all Trouble relaxin = Not at all Being so restless that it is hard to sit still: 0 = Not at all Becoming easily annoyed or irritable: 0 = Not at all Feeling afraid as if something awful might happen: 0 = Not at all Total MOE-7 score (0-4 normal; 5-9 mild; 10-14 moderate; 15-21 severe): 0 Source: Developed by Drs. César Jackson, Ramonita Fernandes, Cecilio Shepard and colleagues, with an educational vicente from [employer]. Review of Systems Const Denies chills, Denies fatigue, Denies fever(s), Denies headache(s) and Denies weakness ENT Denies dizziness and Denies headache(s) Card Denies dyspnea Resp Denies cough, Denies dyspnea, Denies wheezing and Denies other (shortness of breath) Musc Denies numbness and Denies tingling Neuro Denies dizziness, Denies headache(s), Denies numbness, Denies tingling and Denies weakness Psych Denies anxiety and Denies depression Endo Denies fatigue Aller/Immun Denies wheezing Physical exam (Primary Care) Vital Signs: Last Vital Signs Temp 97.9 F 03/29/24 09:45 Pulse 80 03/29/24 09:45 Resp 14 03/29/24 09:45 BP 120/64 03/29/24 09:45 Pulse Ox 98 03/29/24 09:45 Oxygen Delivery Method Room Air 03/29/24 09:45 BMI result Body Mass Index 34.0 Tobacco/Smoking Status: Tobacco use Status Tobacco use date assessed 09/21/23 03/29/24 09:49 Patient Tobacco Use Status Former Tobacco user 03/29/24 09:49 e-Cigarette/Vaping Use Never Used 03/29/24 09:49 PHQ-9: PHQ-9 Score PHQ-9: Total score 1 03/29/24 09:49 Thrive Assessment: Date of Thrive Assessment Date Thrive assessed 12/28/23 03/29/24 09:49 Currently or been in a relationship where the following occur: No concerns reported Const General: well developed; No acute distress Nutritional Appearance: well nourished Orientation/consciousness: patient oriented x3 HENMT Head: Yes normocephalic and Yes atraumatic Eyes General: appearance normal, both eyes and all related structures Pupils: Equal, round and reactive pupils present EOM: EOMs intact bilaterally Resp Effort & Inspection: normal respiratory effort Auscultation: clear to auscultation bilaterally Cardio Rate: regular rate Rhythm: regular rhythm Heart sounds: S1 normal heart sound present, S2 normal heart sound present, no gallops, no murmurs and no rubs Neuro General: patient oriented x3 and gait normal Cranial nerves: Yes Equal, round and reactive pupils present Psych Affect: normal affect Coding Level of Care Code Est Pt Level 3 (42738) Diagnoses Diabetes E11.9 Diabetes mellitus type: type 2 Primary hypertension I10 Hypertension type: primary hypertension Assessment & Plan Assessment & Plan (1) Diabetes: Code(s): E11.9 - Type 2 diabetes mellitus without complications Category: Medical Qualifiers: Diabetes mellitus type: type 2 Plan: A1c?6.3%.??Good?control.??Goal?is?less?than?7.0% Continue?current?medications Continue?to?work?at?a?diet?low?in?sugars?and?starches Encouraged?exercise (2) Hypertension: Code(s): I10 - Essential (primary) hypertension Category: Medical Qualifiers: Hypertension type: primary hypertension Qualified Code(s): I10 - Essential (primary) hypertension Plan: Blood?pressure?is?well?controlled.??Goal?is?less?than?140/90 Continue?current?medications
[2024-03-29 09:45] VITALS: BP 120/64; PULSE 80; RESP 14; TEMP 36.6; O2SAT 98; BMI 34.0
--- OUTSIDE RECORDS SUMMARY | 2024-03-29 09:57 | XMS_ITS | Clinical Summary ---
Author Organization [facility] Address [address] [place] [address] Care Team Providers Care Resource Conservationist Name Role Phone Sanjuanita Hong MD Primary Care Provider [phone] Surgical History Surgery Date Site/Laterality Comments BACK SURGERY PROCEDURE: HISTORICAL BACK SURGERY; COMMENT: López catia for scoliosis COLONOSCOPY [id number] PROCEDURE: HISTORICAL COLONOSCOPY; COMMENT: repeat 2012 KNEE ARTHROSCOPY W/ DEBRIDEMENT 09/23/2021 Left PROCEDURE: NM ARTHRS KNEE DEBRIDEMENT/SHAVING ARTCLR CRTLG; COMMENT: partial medial and lateral meniscectomy, chondroplasty of patella with Dr. Alcantara Medical History Medical History Date Comments Insomnia DX:Insomnia; COM MENT: ambien works well Back pain DX:Back pain Scoliosis DX:Scoliosis; CO MMENT: López catia surgery age 30 Shingles 04/2009 DX:Shingles Family history of melanoma DX:Fa max history of melanoma Anxiety state DX:Anxiety state Essential hypertension DX:Essent ial hypertension Diabetes mellitus type 2, uncomplicated (CMS/HCC) 09/06/2021 DX:Diabetes mellitus type 2, uncomplicated (HCC); COMMENT: Family History Medical History Relation Name Comments Melanoma Brother 1 Diabetes Father Dementia Mother Relation Name Status Comments Brother 1 Brother 2 Alive skin cancer-tomy anoma Brother 3 Alive healthy Father (Age 75) pneumonia, htn , dm Maternal Grandfather Maternal Grandmother Mother Alive pacemaker ,htn; dementia; in NH Paternal Grandfather Paternal Grandmother Sister Alive neuropathy Son Alive healthy; 1977 Social History Tobacco Use Types Packs/Day Years Used Date Smoking Tobacco: Former Cigarettes 0.5 11 0 03/02/1969 - 03/02/1980 Smokeless Tobacco: Never Alcohol Use Standard Drinks/Week Comments Yes 0.8 (1 standard drink = 0.6 oz p ure alcohol) Sex and Gender Information Value Date Recorded Sex Assigned at Not on file Gender Identity Not on file Sexual Orientation Not on file Obstetrics History Last Filed Vital Signs Vital Sign Reading Time Taken Comments Blood Pressure 127/82 10/08/2021 2:02 PM EDT Sit ting L Arm Pulse 103 10/08/2021 2:02 PM EDT Temperature - - Respiratory Rate - - Oxygen Saturation - - Inhaled Oxygen Concentration - - Weight 85.7 kg (189 lb) 09/29/2022 9:38 AM EDT Height 165.1 cm (5' 5 ) 09/29/2022 9:38 AM EDT Body Mass Index 31.45 09/29/2022 9:38 AM EDT Plan of Treatment Upcoming Encounters Date Type Department Care Team (Late st Contact Info) Description 08/09/2024 9:50 AM EDT Appointment Radiology Department [address] [address] Health Maintenance Due Date Last Done Comments Diabetes: Annual GFR (Glomerular Filtration Rate) 1953 Diabetes: Annual Foot Exam 05/30/1963 Diabetes: Annual Retina Eye Exam 05/30/1963 Zoster Vaccines (1 of 2) 05/30/2003 Cholesterol Screening (Lipid Panel) 02/08/2022 Colorectal Cancer Screening: Colonoscopy 02/08/2022 Depression Screening 02/08/2022 Falls Risk Assessment 02/08/2022 Hepatitis C Screening 02/08/2022 Osteoporosis Screening (Bone Density Screening) 02/08/2022 Social Influencers of Health Screening 02/08/2022 Hypertension/CHF/CAD Annual BMP Blood Test 02/09/2022 Diabetes: Annual Urine Albumin-Creatinine Ratio (uACR) 02/12/2022 Diabetes: Blood Sugar Control Test (HGBA1C) 02/12/2022 DTaP,Tdap,and Td Vaccines (2 - Td or Tdap) 03/21/2023 03/21/2013 COVID-19 Vaccine (3 - season) 2023 07/24/2020, 06/26/2020 Influenza Vaccine (#1) 2023 , 12/19/2019, 12/22/2018, Additional history exists Breast Cancer Screening 07/28/2025 07/29/2023, 07/28 RSV Immunization Patients 60+ Years Old (1 - 1-dose 75+ series) 2028 Pneumococcal Vaccine: 65+ Years Completed 03/18/2021, 01/16/2020 HIB Vaccines Aged Out No longer eligi ble based on patient's age to complete this topic HPV Vaccines Aged Out No longer eligi ble based on patient's age to complete this topic Hepatitis A Vaccines Aged Out No long er eligible based on patient's age to complete this topic Hepatitis B Vaccines Aged Out No long er eligible based on patient's age to complete this topic IPV Vaccines Aged Out No longer eligi ble based on patient's age to complete this topic MMR Vaccines Aged Out No longer eligi ble based on patient's age to complete this topic Meningococcal ACWY Vaccine Aged Out N o longer eligible based on patient's age to complete this topic RSV Immunization Patients Under 20 months Aged Out No longer eligible based on patient's age to complete this topic Varicella Vaccines Aged Out No longer eligible based on patient's age to complete this topic Procedures Procedure Name Priority Date/Time Associated Diagnosis Comments SCREENING MAMMOGRAPHY BI 2-VIEW BREAST INC CAD Routine 07/29/2023 1:11 PM EDT Encounter for other screening for malignant neoplasm of breast from Last 3 Months or Most Recently Relevant to Health Maintenance Results * SCREENING MAMMOGRAPHY BI 2-VIEW BREAST INC CAD (07/29/2023 1:11 PM EDT) Anatomical Region Laterality Modality Radiographic Eri ging 06/26/2023 3:13 PM EDT Narrative 07/30/2023 8:48 AM EDT This is a summary report. The complete report is available in the patient's medical record. If you cannot access the medical record, please contact the sending organization for a detailed fax or copy. Study: SCREENING MAMMOGRAPHY BI 2-VIEW BREAST INC CAD Technique: Bilateral full-field digital screening mammography is obtained and read in conjunction with computer aided detection. ??Tomosynthesis as well as 2D C-View imaging were obtained. Comparison: Comparison made to multiple prior, most recent July 24, 2022, and most remote February 13, 2020. Breast composition: The breast tissue is heterogeneously dense, which may obscure small masses. Bilateral breasts: No significant masses, suspicious calcifications or other abnormalities are seen in either breast. IMPRESSION: Impression: Bilateral breasts: Negative, no specific mammographic evidence of malignancy. ??Normal interval follow-up is recommended in 12 months. BI-RADS: Category 1: Negative Procedure Note Jordan Antunez MD - 10/19/2023 This is a summary report. The complete report is available in thepatient's medical record. If you cannot access the medical record, pleasecontact the sending organization for a detailed fax or copy. Study: SCREENING MAMMOGRAPHY BI 2-VIEW BREAST INC CAD Technique: Bilateral full-field digital screening mammography is obtainedand read in conjunction with computer aided detection. Tomosynthesis aswell as 2D C-View imaging were obtained. Comparison: Comparison made to multiple prior, most recent July 24, 2022,and most remote February 13, 2020. Breast composition: The breast tissue is heterogeneously dense, which mayobscure small masses. Bilateral breasts: No significant masses, suspicious calcifications orother abnormalities are seen in either breast. IMPRESSION: Impression: Bilateral breasts: Negative, no specific mammographic evidence ofmalignancy. Normal interval follow-up is recommended in 12 months. BI-RADS: Category 1: Negative Heber Mcneill MD IMG XR PROCEDURES from Last 3 Months or Most Recently Relevant to Health Maintenance Care Teams Resource Conservationist Relationship Specialty Start Date End Date Sanjuanita Hong MD PCP - General 04/05/07
== END 2024-03-29 10:10 | disposition home or self-care (01) ==
PROVIDERS: PCP Family Medicine; Visit Provider Family Medicine
DX: E11.9 Type 2 diabetes mellitus without complications (principal); I10 Essential (primary) hypertension

== ENCOUNTER → 2024-03-29 09:25 | Outpatient (BNVA) | payer BC, SELFPAY | PROVIDERS: PCP Family Medicine; Visit Provider Family Medicine ==

== ENCOUNTER 2024-07-11 09:22 | Outpatient (AMB) | payer BC, SELFPAY ==
--- NOTE | 2024-07-11 09:28 | MHC.PC.OV ---
Vital Signs 07/11/24 09:30 Height 5 ft 2.6 in Weight 192 lb 4 oz BMI 34.5 BP 130/76 Blood Pressure Location Rt brachial Position Sitting Respiration 14 Pulse 90 Pulse Source Pulse Oximeter Temp 97.8 F Temp Source Oral Pulse Oximetry (%) 97 Oxygen Delivery Method Room Air Intake Visit Reasons: f/u diabetes, HTN Intake Note: patient is scheduled for follow up dm and htn Gauge And Weigh Machine Operator Required: No Allergies penicillin V Allergy (Mild, Verified 07/11/24 09:28) unknown Medication List - Last Reconciled 07/11/24 by Heber Mcneill MD blood sugar diagnostic (FreeStyle Lite Strips) As directed TID blood sugar diagnostic (FreeStyle Lite Strips) DX: E11.9, test blood sugar once a day, 90 days blood-glucose meter (FreeStyle Lite Meter kit) As directed blood-glucose meter (FreeStyle Lite Meter kit) DX: E11.9, test blood sugar once a day, duration 999 days clonidine HCl 0.1 mg PO DAILY 30 days ezetimibe (Zetia) 10 mg PO DAILY 90 days ibuprofen 600 mg PO TID PRN 30 days lancets (FreeStyle Lancets) As directed lancets (FreeStyle Lancets) As directed losartan 50 mg PO DAILY 90 days metformin 500 mg PO DAILY 90 days tramadol 50 mg PO BID PRN 30 days zolpidem 10 mg PO BEDTIME PRN 30 days Tobacco use date assessed: 09/21/23 Dental Screening Dental Screen Date: 09/21/23 HPI f/u diabetes, HTN HPI Details 69 y/o female presents to f/u diabetes, HTN. BP today 130/76, 90p. She is on losartan 50mg daily. Last A1c 6.3%. A1c today 07/11/24 7.0%, which had worsened from prior. She had been taking metformin. Had been taking ozempic briefly. HPI Comments History of Present Illness Details Documentation assistance for Heber Mcneill MD, was provided by Ferny Garces, Caterer'S Aide on 07/11/2024 at 9:42 AM CRISTIAN. Efra, Dr. Mcneill, have read, observed, and verified documentation. [facility] Medical History Bunion, right foot Surgical History H/O toe surgery History of lumbar fusion H/O knee surgery Family History Father Diabetes Mother Pacemaker High blood pressure Sister Mental health disorder Social History Housing: Condominium Alcohol intake: current Alcohol intake frequency: a few times a month Patient Tobacco Use Status: Former Tobacco user e-Cigarette/Vaping Use: Never Used Second Hand Smoke Exposure: No service: No Current occupational status: retired Current occupational exposures/hazards: No Cognitive needs: No Hearing needs: No Vision needs: No Questionnaire Thrive Questionnaire Date Thrive assessed: 12/28/23 MOE-7 AMB Questionnaire MOE-7 Date MOE - 7 assessed: 12/28/23 Source: Developed by Drs. César Jackson, Ramonita Fernandes, Cecilio Shepard and colleagues, with an educational vicente from [employer]. Review of Systems Const Denies chills, Denies fatigue, Denies fever(s), Denies headache(s) and Denies weakness ENT Denies dizziness and Denies headache(s) Card Denies dyspnea Resp Denies cough, Denies dyspnea, Denies wheezing and Denies other (shortness of breath) Musc Denies numbness and Denies tingling Neuro Denies dizziness, Denies headache(s), Denies numbness, Denies tingling and Denies weakness Psych Denies anxiety and Denies depression Endo Denies fatigue Aller/Immun Denies wheezing Physical exam (Primary Care) Vital Signs: Last Vital Signs Temp 97.8 F 07/11/24 09:30 Pulse 90 07/11/24 09:30 Resp 14 07/11/24 09:30 BP 130/76 07/11/24 09:30 Pulse Ox 97 07/11/24 09:30 Oxygen Delivery Method Room Air 07/11/24 09:30 BMI result Body Mass Index 34.5 Tobacco/Smoking Status: Tobacco use Status Tobacco use date assessed 09/21/23 07/11/24 09:34 Patient Tobacco Use Status Former Tobacco user 07/11/24 09:34 e-Cigarette/Vaping Use Never Used 07/11/24 09:34 Thrive Assessment: Date of Thrive Assessment Date Thrive assessed 12/28/23 07/11/24 09:34 Const General: well developed; No acute distress Nutritional Appearance: well nourished and obese Orientation/consciousness: patient oriented x3 [facility] Head: Yes normocephalic and Yes atraumatic Eyes General: appearance normal, both eyes and all related structures Pupils: Equal, round and reactive pupils present EOM: EOMs intact bilaterally Resp Effort & Inspection: normal respiratory effort Neuro General: patient oriented x3 and gait normal Cranial nerves: Yes Equal, round and reactive pupils present Psych Affect: normal affect Coding Level of Care Code Est Pt Level 4 (09582) Diagnoses Diabetes E11.9 Diabetes mellitus type: type 2 Primary hypertension I10 Hypertension type: primary hypertension Obesity E66.9 Assessment & Plan Assessment & Plan (1) Diabetes: Code(s): E11.9 - Type 2 diabetes mellitus without complications Category: Medical Qualifiers: Diabetes mellitus type: type 2 Plan: A1c?climbed?from?6.3%?to?7.0%.??Goal?is?less?than?7.0% She?had?been?taking?metformin?and?also?Ozempic?briefly. She?will?continue?metformin?as?prescribed. Adding?small?dose?of?glipizide?in?the?morning (2) Hypertension: Code(s): I10 - Essential (primary) hypertension Category: Medical Qualifiers: Hypertension type: primary hypertension Qualified Code(s): I10 - Essential (primary) hypertension Plan: Blood?pressure?is?controlled.??Goal?is?less?than?140/90 Continue?current?medications (3) Obesity: Code(s): E66.9 - Obesity, unspecified Category: Medical Plan: Had?tried?Ozempic?but a?relative?discouraged?her?from?using?this?medication. Does?not?need?to?use?Ozempic.??She?use?lifestyle?changes. She?will?look?into?this?further. Orders: Orders AMB Hemoglobin A1c Today E11.9 - Type 2 diabetes mellitus without complications Comprehensive [place]. Panel Fast Today Z00.00 - Encounter for general adult medical examination without abnormal findings Complete Blood Count Auto Diff Today Z00.00 - Encounter for general adult medical examination without abnormal findings Lipid Panel Today Z00.00 - Encounter for general adult medical examination without abnormal findings Microalbumin, Random (w Creat) Today I10 - Essential (primary) hypertension UA CC w/rflx Micro + Cult Today Z00.00 - Encounter for general adult medical examination without abnormal findings TSH reflex Free T4 Today Z00.00 - Encounter for general adult medical examination without abnormal findings Medications: New glipizide ER 2.5 mg PO DAILY 30 tabs 2RF 30 days
--- OUTSIDE RECORDS SUMMARY | 2024-07-11 09:28 | XMS_ITS | Clinical Summary ---
Author Organization [facility] Address [address] [place] [address] Care Team Providers Care Slitter Cut Off Operator Name Role Phone Sanjuanita Hong MD Primary Care Provider [phone]- [phone] Surgical History Surgery Date Site/Laterality Comments BACK SURGERY PROCEDURE: HISTORICAL BACK SURGERY; COMMENT: López catia for scoliosis COLONOSCOPY [id number] PROCEDURE: HISTORICAL COLONOSCOPY; COMMENT: repeat 2012 KNEE ARTHROSCOPY W/ DEBRIDEMENT 09/23/2021 Left PROCEDURE: [place] ARTHRS KNEE DEBRIDEMENT/SHAVING ARTCLR CRTLG; COMMENT: partial [...] ial hypertension Diabetes mellitus type 2, uncomplicated (CMS/HCC V24, CMS/HCC V28) 09/06/2021 DX:Diabetes mellitus type 2, uncomplicated (HCC); [...] drink = 0.6 oz p ure alcohol) Comments Unknown Sex and Gender Information Value Date Recorded Sex Assigned at Not on file Legal Sex Female 11:41 PM EST Gender Identity Not on file Sexual Orientation [...] 08/09/2024 9:50 AM EDT Appointment Radiology Department [address] [id number] Health Maintenance Due Date Last Done Comments [...] - season) 2023 07/24/2020, 06/26/2020 Influenza Vaccine (Season Ended) 2024 12/14/2020, 12/19/2019, 12/22/2018, Additional history exists Breast Cancer Screening 07/28/2025 07/29/2023, 07/28 RSV Immunization Adult Patients (1 - 1-dose 75+ series) 2028 Pneumococcal Vaccine: 50+ Years Completed 03/18/2021, 01/16/2020 HIB Vaccines Aged [...] patient's age to complete this topic Meningococcal B Vaccine Aged Out No l onger eligible based on patient's age to complete [...] in 12 months. BI-RADS: Category 1: Negative us Heber Mcneill MD IMG XR PROCEDURES Final Res ult from Last 3 Months or Most Recently Relevant to Health Maintenance Care Teams Slitter Cut Off Operator Relationship Specialty Start Date End Date Sanjuanita Hong MD PCP - General 04/05/07
[2024-07-11 09:30] VITALS: BP 130/76; PULSE 90; RESP 14; TEMP 36.6; O2SAT 97; BMI 34.5
== END 2024-07-11 09:58 | disposition home or self-care (01) ==
LOC: HO.HMCFM 09:22
PROVIDERS: PCP Family Medicine; Visit Provider Family Medicine
DX: E11.9 Type 2 diabetes mellitus without complications (principal)

== ENCOUNTER → 2024-07-11 09:22 | Outpatient (BNVA) | payer BC, SELFPAY | PROVIDERS: PCP Family Medicine; Visit Provider Family Medicine | DX: E11.9 Type 2 diabetes mellitus without complications (principal); I10 Essential (primary) hypertension; E66.9 Obesity, unspecified; Z68.34 Body mass index [BMI] 34.0-34.9, adult; Z79.84 Long term (current) use of oral hypoglycemic drugs | CPT/HCPCS: 83036 ==

== ENCOUNTER 2024-10-10 10:00 | Outpatient (REF) | payer BC, SELFPAY ==
--- OUTSIDE RECORDS SUMMARY | 2024-10-10 10:39 | XMS_ITS | Clinical Summary ---
Author Organization [facility] [address] [place] [address] [place] [address] Phone Care Team Providers Care Cleaning Validation Consultant Name Role Phone Vaughn Mcneill NP Primary Care Provider Unavaila ble Encounters Date Type Department Care Team Description 08/09/2024 9:30 AM EDT - 08/09/2024 11:59 PM EDT Hospital Encounter Radiology Department - [address] [phone] Encounter for screening mammogram for breast cancer Discharge Disposition: Home or Self Care from Last 3 Months Surgical History Surgery Date Site/Laterality Comments BACK SURGERY PROCEDURE: HISTORICAL BACK SURGERY; COMMENT: López catia for scoliosis COLONOSCOPY [id number] PROCEDURE: HISTORICAL COLONOSCOPY; COMMENT: repeat 2012 KNEE [...] = 0.6 oz p ure alcohol) Comments No Sex and Gender Information Value Date Recorded Sex Assigned at Not on file Legal Sex Female 11:41 PM EST Gender Identity Not on file Sexual Orientation Not on file Obstetrics History Para Term AB IAB SAB Ectopic Multiple Livin g Live Births 1 Date Outcome GA Total Labor Labor//3rd Weight Sex Type Anes PTL Elizabeth A1 A5 Name Clin Term Last Filed Vital Signs Vital Sign Reading [...] 09/29/2022 9:38 AM EDT Plan of Treatment Health Maintenance Due Date Last Done Comments Diabetes: Annual GFR (Glomerular Filtration Rate) 1953 Diabetes: Annual Foot Exam 05/30/1963 Diabetes: Annual Retina Eye Exam 05/30/1963 Zoster Vaccines (1 of 2) 05/30/2003 Cholesterol Screening (Lipid Panel) 02/08/2022 Colorectal Cancer Screening: Colonoscopy 02/08/2022 Falls Risk Assessment 02/08/2022 Hepatitis C Screening 02/08/2022 Medicare Annual Wellness Visit 02/08/2022 Osteoporosis Screening (Bone Density Screening) 02/08/2022 Social Influencers of Health Screening 02/08/2022 Hypertension/CHF/CAD Annual BMP Blood Test 02/09/2022 Diabetes: Annual Urine Albumin-Creatinine Ratio (uACR) 02/12/2022 Diabetes: Blood Sugar Control Test (HGBA1C) 02/12/2022 DTaP,Tdap,and Td Vaccines (2 - Td or Tdap) 03/21/2023 03/21/2013 COVID-19 Vaccine (3 - season) 2023 07/24/2020, 06/26/2020 Depression Screening 03/02/2024 Influenza Vaccine (#1) 2024 , 01/11/2023, 01/06/2022, Additional history exists Breast Cancer Screening 08/09/2026 08/10/19, 07/29/2023, 07/29/2023 RSV Immunization Adult Patients (1 - 1-dose [...] Procedure Name Priority Date/Time Associated Diagnosis Comments MG MAMMO DIGITAL SCREENING W LEV BILAT Routine 08/09/2024 9:48 AM EDT Encounter for screening mammogram for breast cancer from Last 3 Months Results * MG Mammo Digital Screening w Lev bilat (08/09/2024 9:48 AM EDT) Anatomical Region Laterality Modality Breast Bilateral Mammography 08/09/2024 2:25 PM EDT Impressions 08/09/2024 2:28 PM EDT 1. No mammographic evidence of malignancy 2. Heterogeneous breast parenchyma BI-RADS CATEGORY: 2 - BENIGN RECOMMENDATION: Screening bilateral mammogram is recommended in 1 year. Mammo Location: [facility], [address] [place] [address], [address], . -------- FINAL REPORT -------- Dictated By: Renetta Dahl Dictated Date: 08/09/2024 14:25 ET Assigned Physician: Renetta Dahl Reviewed and Electronically Signed By: Renetta Dahl Signed Date: 08/09/2024 14:28 ET Workstation ID: [id number] Transcribed By: Self Edit Transcribed Date: 08/09/2024 14:25 ET Narrative 08/09/2024 2:28 PM EDT A BILATERAL DIGITAL 3D SCREENING MAMMOGRAPHY HISTORY: Routine screening. COMPARISON: Multiple priors dating back to 02/13/2020 Technique: Bilateral full field digital mammography (3D) was performed using standard CC and MLO projections CAD was used to evaluate this mammogram. FINDINGS: Right: No suspicious masses, groups of microcalcification or areas of architectural distortion identified. Stable typically benign parenchymal asymmetries. Left: No suspicious masses, groups of microcalcification or areas of architectural distortion identified. Stable typically benign parenchymal asymmetries. BREAST DENSITY: C - The breasts are heterogeneously dense which may obscure small masses. Procedure Note Renetta Dahl MD - 08/09/2024 A BILATERAL DIGITAL 3D SCREENING MAMMOGRAPHY HISTORY: Routine screening. COMPARISON: Multiple priors dating back to 02/13/2020 Technique: Bilateral full field digital mammography (3D) was performedusing standard CC and MLO projections CAD was used to evaluate this mammogram. FINDINGS: Right: No suspicious masses, groups of microcalcification or areas ofarchitectural distortion identified. Stable typically benign parenchymalasymmetries. Left: No suspicious masses, groups of microcalcification or areas ofarchitectural distortion identified. Stable typically benign parenchymalasymmetries. BREAST DENSITY: C - The breasts are heterogeneously dense which mayobscure small masses. IMPRESSION: 1. No mammographic evidence of malignancy 2. Heterogeneous breast parenchyma BI-RADS CATEGORY: 2 - BENIGN RECOMMENDATION: Screening bilateral mammogram is recommended in 1 year. Mammo Location: [facility], [address] [place] [address], [phone], . -------- FINAL REPORT -------- Dictated By: Renetta Dahl Dictated Date: 08/09/2024 14:25 ET Assigned Physician: Renetta Dahl Reviewed and Electronically Signed By: Renetta Dahl Signed Date: 08/09/2024 14:28 ET Workstation ID: [id number] Transcribed By: Self Edit Transcribed Date: 08/09/2024 14:25 ET Heber Mcneill MD IMG BI PROCEDURES Final Res ult from Last 3 Months Insurance [employer] - [place] MEDICARE ADVANTAGE Care Teams Cleaning Validation Consultant Relationship Specialty Start Date End Date Vaughn Mcneill NP PCP - General Psychology 08/09/24
[2024-10-10 11:29] LABS: MANUAL DIFF FLAG NO
[2024-10-10 11:37] LABS: Hematocrit 39.8 % (37.0-47.0); Hemoglobin 13.2 g/dl (12.0-16.0); Red Blood Count 4.29 X10*6/uL (4.20-5.50); White Blood Count 9.9 X10*3/uL (4.8-10.8)
[2024-10-10 11:38] LABS: Imm Gran Abs Auto 0.03 X10*3/uL (0.00-0.03); Imm Gran Pct Auto 0.3 % (0.0-0.4); Lymphocytes Absolute Auto 2.4 X10*3/uL (1.2-4.9); Mean Corpuscular HGB Conc 33.2 g/dl (31.0-35.0); Mean Corpuscular Hemoglobin 30.8 pg (27.0-33.0); Mean Corpuscular Volume 92.8 fL (80.0-98.0); NRBC Abs Auto 0.000 X10*3/uL (0.0-0.012); NRBC Pct Auto 0.0 /100WBC (0.0-0.2); Platelet Count 265 X10*3/uL (160-400)
[2024-10-10 12:34] LABS: Alanine Aminotransferase 22 U/L (0-31); Albumin Level 4.2 g/dL (3.5-5.0); Alkaline Phosphatase 99 U/L (39-117); Anion Gap 12 (12-20); Aspartate Amino Transferase 31 U/L (5-31); Blood Urea Nitrogen 17 mg/dL (9-16); Calcium 9.2 mg/dL (8.4-10.2); Carbon Dioxide 29 mmol/L (22-29); Chloride 105 mmol/L (96-108); Cholesterol 179 mg/dL (<200); Estimated Glomerular Filt Rate > 60; HDL Cholesterol 56 mg/dL (>40); Potassium 3.9 mmol/L (3.3-5.1); Sodium 142 mmol/L (135-145); Total Protein 7.5 g/dL (6.5-8.0); Triglycerides 99 mg/dL (<150)
[2024-10-10 14:46] LABS: Appearance Urine Clear; Glucose Urine UA Negative (Negative); PH 8.5 (5.0-9.0); Specific Gravity - Urine 1.020 (1.005-1.025); UMIC TRIGGER UACC YES
[2024-10-10 15:38] LABS: Microalbum/Creatinine Ratio Ur 14.3 ug/mg cr (<30)
== END 2024-10-10 10:01 | disposition home or self-care (01) ==
LOC: HO.WFDLDS 10:00
PROVIDERS: Visit Provider Family Medicine
DX: Z00.00 Encounter for general adult medical examination without abnormal findings (principal); I10 Essential (primary) hypertension
CPT/HCPCS: 36415; 80053; 80061; 81001; 82043; 82570; 84443; 85025

== ENCOUNTER 2024-10-13 15:52 | Outpatient (AMB) | payer BC, SELFPAY ==
--- NOTE | 2024-10-13 15:59 | A.OFFPC_ITS ---
Vital Signs 10/13/24 16:00 Height 5 ft 2.6 in Weight 196 lb 2 oz BMI 35.2 BP 128/72 Blood Pressure Location Rt brachial Position Sitting Respiration 18 Pulse 88 Pulse Source Pulse Oximeter Temp 98.2 F Temp Source Oral Pulse Oximetry (%) 97 Oxygen Delivery Method Room Air Intake Visit Reasons: CPE with f/u labs and health maint Allergies penicillin V Allergy (Mild, Verified 10/13/24 16:05) unknown Tobacco use date assessed: 10/13/24 Fall risk assessment: No Falls in past year Last assessed Fall Risk: 10/13/24 Dental Screening Dental Screen Date: 10/13/24 Did you have a dental visit in the last 12 months?: Yes Did you have a dental problem in the last 6 months where you did not have access to dental care?: No Was dental information given to patient?: Patient has dentist HPI CPE with f/u labs and health maint HPI Details 69 y/o female presents for a CPE with f/ u labs and health maintenance. Labs drawn 10/10/24. Reviewed labs with pt. Fasting glucose 151. Last A1c 07/11/24 7.0%. She is prescribed metformin 500mg, glipizide 2.5mg daily. Pt notes she is only on her glipizide. A1c today 6.3%. Triglycerides 99. TC 179. LDL 104. HDL 56. Reports some fatigue. Was referred to sleep medicine before. Does have insomnia and gets poor sleep. [facility] Medical History Bunion, right foot Surgical History H/O toe surgery History of lumbar fusion H/O knee surgery Family History Father Diabetes Mother Pacemaker High blood pressure Sister Mental health disorder Social History Housing: Condominium Alcohol intake: current Alcohol intake frequency: a few times a month Patient Tobacco Use Status: Former Tobacco user e-Cigarette/Vaping Use: Never Used Second Hand Smoke Exposure: No service: No Current occupational status: retired Current occupational exposures/hazards: No Cognitive needs: No Hearing needs: No Vision needs: No Questionnaire PHQ-9 Over the last 2 weeks, how often have you been bothered by any of the following problems? 1. Little interest or pleasure in doing things: not at all 2. Feeling down, depressed, or hopeless: not at all 3. Trouble falling or staying asleep, or sleeping too much: not at all 4. Feeling tired or having little energy: several days 5. Poor appetite or overeating: not at all 6. Feeling bad about yourself - or that you are a failure or have let yourself or your family down: not at all 7. Trouble concentrating on things, such as reading the newspaper or watching television: not at all 8. Moving or speaking so slowly that other people could have noticed. Or the opposite - being so fidgety or restless that you have been moving around a lot more than usual: not at all 9. Thoughts that you would be better off or of hurting yourself in some way: not at all Total score: 1 Depression Screening Interpretation: Negative Depression Screening Done: Yes 16942 - PHQ-9 Billing: Yes Source: Developed by Drs. César Jackson, Ramonita Fernandes, Cecilio Shepard and colleagues, with an educational vicente from [employer]. Thrive Questionnaire Date Thrive assessed: 10/13/24 I am a: Patient What is your living situation today?: I have a steady place to live Within the past 12 months, did the food you bought not last and you didn't have the money to get more?: Never true Within the past 12 months, did you worry whether your food would run out before you got money to buy more?: Never true Do you have trouble paying for medicines?: No Do you have trouble getting transportation to medical appointments?: No Do you have trouble paying your heating and electricity bill?: No Do you have trouble taking care of your child, family member or friend?: No Do you have trouble with day-to-day activities such as bathing, preparing meals, shopping, managing finances, etc.?: No Are you currently unemployed and looking for a job?: No Are you interested in more education?: No Please select the resources that you would like help with: None Currently or been in a relationship where the following occur: No concerns reported THRIVE Score: 0 AUDIT C Alcohol Use Questionnaire (AUDIT-C) 1. How often do you have a drink containing alcohol?: 2-3 times a week 2. How many drinks containing alcohol do you have on a typical day when you are drinking?: 1 or 2 3. How often do you have six or more drinks on one occasion?: Never Total Score: 3 MOE-7 AMB Questionnaire MOE-7 Date MOE - 7 assessed: 10/13/24 Feeling nervous, anxious, or on edge: 0 = Not at all Not being able to stop or control worryin = Not at all Worrying too much about different things: 0 = Not at all Trouble relaxin = Not at all Being so restless that it is hard to sit still: 0 = Not at all Becoming easily annoyed or irritable: 0 = Not at all Feeling afraid as if something awful might happen: 0 = Not at all Total MOE-7 score (0-4 normal; 5-9 mild; 10-14 moderate; 15-21 severe): 0 Source: Developed by Drs. César Jackson, Ramonita Fernandes, Cecilio Shepard and colleagues, with an educational vicente from [employer]. MOE-7 Assessment Billing MOE-7 Assessment Tool: MOE-7 Assessment 04823 Review of Systems Const Reports fatigue, Denies headache(s) and Denies weakness Eyes Denies change in vision ENT Denies dizziness and Denies headache(s) Card Denies dyspnea Resp Denies cough, Denies dyspnea, Denies wheezing and Denies other (shortness of breath) GI Denies abdominal pain, Denies melena, Denies hematochezia, Denies change in bowel habits, Denies dyspepsia and Denies nausea Denies hematuria and Denies dysuria Musc Denies numbness and Denies tingling Skin/Breast Denies rash, Denies unusual bruising and Denies wounds Neuro Denies dizziness, Denies headache(s), Denies numbness, Denies Sensory deficit (Neuro), Denies tingling and Denies weakness Psych Denies anxiety and Denies depression Endo Reports fatigue Sergei/Lymph Denies easy bleeding and Denies easy bruising Aller/Immun Denies wheezing Physical exam (Primary Care) Vital Signs: Last Vital Signs Temp 98.2 F 10/13/24 16:00 Pulse 88 10/13/24 16:00 Resp 18 10/13/24 16:00 BP 128/72 10/13/24 16:00 Pulse Ox 97 10/13/24 16:00 Oxygen Delivery Method Room Air 10/13/24 16:00 BMI result Body Mass Index 35.2 Tobacco/Smoking Status: Tobacco use Status Tobacco use date assessed 10/13/24 10/13/24 16:07 Patient Tobacco Use Status Former Tobacco user 10/13/24 15:59 e-Cigarette/Vaping Use Never Used 10/13/24 15:59 PHQ-9: PHQ-9 Score PHQ-9: Total score 1 10/13/24 16:09 Depression Screening Interpretation: Negative Thrive Assessment: Date of Thrive Assessment Date Thrive assessed 10/13/24 10/13/24 16:07 Currently or been in a relationship where the following occur: No concerns reported Const General: well developed; No acute distress Nutritional Appearance: well nourished Orientation/consciousness: patient oriented x3 HENMT Head: Yes normocephalic and Yes atraumatic Ears: hearing grossly normal bilaterally and TM's normal bilaterally General nose exam: Normal external nose present and Normal nares present Mouth: Normal oral and palatal mucosa present and moist mucous membranes Teeth and gingiva: dentition normal Throat: Yes posterior oropharynx normal Eyes General: appearance normal, both eyes and all related structures Pupils: Equal, round and reactive pupils present EOM: EOMs intact bilaterally Neck Neck: Yes normal visual inspection, Yes no lymphadenopathy and Yes trachea midline Thyroid: Thyroid normal Carotids: no bruits Lymphatic: no lymphadenopathy noted Chest Chest palpation & inspection: normal inspection of the chest Resp Effort & Inspection: normal respiratory effort Auscultation: clear to auscultation bilaterally Cardio Rate: regular rate Rhythm: regular rhythm Heart sounds: S1 normal heart sound present, S2 normal heart sound present, no gallops, no murmurs and no rubs Bruits: no abdominal aortic bruits and no carotid bruits GI Palpation (GI): No Abdominal aortic bruit present, Soft to palpation, nontender, No hepatosplenomegaly present and No Rebound tenderness present Auscultation: normal bowel sounds General: Yes no CVA tenderness Back/Spine/Pelvis Back: no CVA tenderness Cervical Spine: cervical ROM normal and No Cervical spine tenderness Thoracic/Lumbar Spine: thoraco-lumbar ROM normal, No pain with thoraco-lumbar ROM, No thoracic spinal tenderness and No lumbar spinal tenderness Skin Lesions: no lesions Rashes: no rashes Trauma: no lacerations or abrasions Wounds: no wounds Nails: normal Neuro General: patient oriented x3 and gait normal Cranial nerves: Yes Equal, round and reactive pupils present Cognition (Neuro): normal cognition Gait exam (Neuro): Normal gait present Motor exam (neuro): 5/5 motor strength present throughout Sensory Exam: No Sensory deficit (Neuro) Deep tendon reflexes (DTR's): Right patellar reflex intensity grade: 2+ and Left patellar reflex intensity grade: 2+ Extrem General: Yes normal to inspection and No edema Psych Appearance: grossly normal Affect: normal affect Attitude: cooperative Thought process: Normal thought process present Results AMB Hemoglobin A1c AMB Hemoglobin A1c 6.3 % Last Edit by Saumya Hong CMA on 10/13/24 16:18 Results Reviewed Results Reviewed: Laboratory Last Values Hgb A1c (Clinic) 6.3 % (4.0-6.0) H 10/13/24 16:11 Coding Level of Care Code Est Pt Level 3 (50173) Est Pt Prev Care >65y(09469) Diagnoses Adult general medical exam Z00.00 Primary hypertension I10 Hypertension type: primary hypertension Fatigue R53.83 Hypercholesterolemia E78.00 Diabetes E11.9 Diabetes mellitus type: type 2 Screening for osteoporosis Z13.820 Screening for colon cancer Z12.11 Breast cancer screening by mammogram Z12.31 Additional Codes MOE-7 Assessment Billing - MOE-7 Assessment Tool: MOE-7 Assessment 50348 ([id number]) PHQ-9 - 13250 - PHQ-9 Billing: Yes ([id number]) Assessment & Plan Assessment & Plan (1) Adult general medical exam: Code(s): Z00.00 - Encounter for general adult medical examination without abnormal findings Category: Medical Plan: 69-year-old female presents for complete physical exam Encouraged a healthy diet with active lifestyle and plenty of exercise (2) Hypertension: Code(s): I10 - Essential (primary) hypertension Category: Medical Qualifiers: Hypertension type: primary hypertension Qualified Code(s): I10 - Essential (primary) hypertension Plan: Blood pressure is controlled. Goal is less than 140/90 Continue current medication (3) Fatigue: Code(s): R53.83 - Other fatigue Category: Medical Plan: Unclear cause of her fatigue Prior sleep study negative Patient does have insomnia and gets poor sleep Were get improved sleep. Sleep hygiene. Encouraged exercise (4) Hypercholesterolemia: Code(s): E78.00 - Pure hypercholesterolemia, unspecified Category: Medical Plan: LDL cholesterol is mildly above goal of less than 100 Continue Zetia Work at weight loss and diet lower in saturated fats and cholesterol (5) Diabetes: Code(s): E11.9 - Type 2 diabetes mellitus without complications Category: Medical Qualifiers: Diabetes mellitus type: type 2 Plan: A1c now well controlled. 6.3%. Goal is less than 7.0% Continue glipizide Continue diabetic diet (6) Screening for osteoporosis: Code(s): Z13.820 - Encounter for screening for osteoporosis Category: Medical Plan: Bone density test showed osteopenia in 2023 Continue good sources of calcium and vitamin-D Continue weight-bearing exercises Will recheck bone density test next year (7) Screening for colon cancer: Code(s): Z12.11 - Encounter for screening for malignant neoplasm of colon Category: Medical Plan: Patient had colonoscopy with [facility] in 2022 Will request report (8) Breast cancer screening by mammogram: Code(s): Z12.31 - Encounter for screening mammogram for malignant neoplasm of breast Category: Medical Plan: Mammogram showed no evidence of malignancy. Up-to-date. Continue annual screening Orders: Orders AMB Hemoglobin A1c Today Z13.9 - Encounter for screening, unspecified
[2024-10-13 16:00] VITALS: BP 128/72; PULSE 88; RESP 18; TEMP 36.8; O2SAT 97; BMI 35.2
--- OUTSIDE RECORDS SUMMARY | 2024-10-13 16:04 | XMS_ITS | Clinical Summary ---
Author Organization [facility] [address] [place] [address] [place] [address] Phone Care Team Providers Care Wire Web Worker Name Role Phone Vaughn Mcneill NP Primary Care Provider Unavaila ble Encounters Date Type Department Care Team Description 08/09/2024 9:30 AM EDT - 08/09/2024 11:59 PM EDT Hospital Encounter Radiology Department - [address] [phone] Encounter for screening mammogram for breast cancer Discharge Disposition: Home or Self Care from Last 3 Months Surgical History Surgery Date Site/Laterality Comments BACK SURGERY PROCEDURE: HISTORICAL BACK SURGERY; COMMENT: López catia for scoliosis COLONOSCOPY [id number] PROCEDURE: HISTORICAL COLONOSCOPY; COMMENT: repeat 2012 KNEE ARTHROSCOPY W/ DEBRIDEMENT 09/23/2021 Left PROCEDURE: IN ARTHRS KNEE DEBRIDEMENT/SHAVING ARTCLR CRTLG; COMMENT: partial [...] is recommended in 1 year. Mammo Location: [facility], [address] [place] [address], [address], . -------- FINAL REPORT -------- Dictated By: Renetta Dahl Dictated Date: 08/09/2024 14:25 ET Assigned Physician: Renetta Dahl Reviewed and Electronically Signed By: Renteta Dahl Signed Date: 08/09/2024 14:28 ET Workstation ID: [id number] Transcribed By: Self Edit Transcribed Date: 08/09/2024 [...] is recommended in 1 year. Mammo Location: [facility], [address] [place] [address], [address], . -------- FINAL REPORT -------- Dictated By: Renetta Dahl Dictated Date: 08/09/2024 14:25 ET Assigned Physician: Renetta Dahl Reviewed and Electronically Signed By: Renetta Dahl Signed Date: 08/09/2024 14:28 ET Workstation ID: [id number] Transcribed By: Self Edit Transcribed Date: 08/09/2024 14:25 ET Heber Mcneill MD IMG BI PROCEDURES Final Res ult from Last 3 Months Insurance [employer] - [place] MEDICARE ADVANTAGE Care Teams Wire Web Worker Relationship Specialty Start Date End Date Vaughn Mcneill NP PCP - General Psychology 08/09/24
== END 2024-10-13 16:40 | disposition home or self-care (01) ==
LOC: HO.HMCFM 15:53
PROVIDERS: PCP Family Medicine; Visit Provider Family Medicine
DX: Z00.00 Encounter for general adult medical examination without abnormal findings (principal); E11.9 Type 2 diabetes mellitus without complications; I10 Essential (primary) hypertension; R53.83 Other fatigue; E78.00 Pure hypercholesterolemia, unspecified; Z13.820 Encounter for screening for osteoporosis; Z12.11 Encounter for screening for malignant neoplasm of colon; Z12.31 Encounter for screening mammogram for malignant neoplasm of breast

== ENCOUNTER → 2024-10-13 15:52 | Outpatient (BNVA) | payer BC, SELFPAY | PROVIDERS: PCP Family Medicine; Visit Provider Family Medicine | DX: Z00.00 Encounter for general adult medical examination without abnormal findings (principal); I10 Essential (primary) hypertension; E11.9 Type 2 diabetes mellitus without complications; R53.83 Other fatigue; E78.00 Pure hypercholesterolemia, unspecified | CPT/HCPCS: 83036; 96127 ==

== ENCOUNTER 2025-01-12 09:33 | Outpatient (REF) | payer BC, SELFPAY ==
--- OUTSIDE RECORDS SUMMARY | 2025-01-12 11:02 | XMS_ITS | Clinical Summary ---
Author Organization [facility] [address] [place] [address] [place] [phone] Phone Care Team Providers Care Avionics Test Technician Name Role Phone Vaughn Mcneill NP Primary Care Provider Unavaila ble Surgical History Surgery Date Site/Laterality Comments BACK SURGERY PROCEDURE: HISTORICAL BACK SURGERY; COMMENT: López catia for scoliosis COLONOSCOPY [id number] PROCEDURE: HISTORICAL COLONOSCOPY; COMMENT: repeat 2012 KNEE ARTHROSCOPY W/ DEBRIDEMENT 09/23/2021 Left PROCEDURE: [place] ARTHRS KNEE DEBRIDEMENT/SHAVING ARTCLR CRTLG; COMMENT: partial [...] Ectopic Multiple Livin g Live Births 1 1 1 1 Date Outcome GA Total Labor Labor/2nd/3rd Weight Sex Type Anes PTL Elizabeth A1 [...] Health Maintenance Due Date Last Done Comments Colorectal Cancer Screening: Colonoscopy 1955 Diabetes: Annual GFR (Glomerular Filtration Rate) 1955 Diabetes: Annual Foot Exam 05/30/1963 Diabetes: Annual Retina Eye Exam 05/30/1963 Zoster Vaccines (1 of 2) 05/30/2003 Cholesterol Screening (Lipid Panel) 02/08/2022 Falls Risk Assessment 02/08/2022 Hepatitis C Screening 02/08/2022 Medicare Annual Wellness Visit 02/08/2022 Osteoporosis Screening (Bone Density Screening) 02/08/2022 Social Influencers of Health Screening 02/08/2022 Hypertension/CHF/CAD Annual BMP Blood Test 02/09/2022 Diabetes: Annual Urine Albumin-Creatinine Ratio (uACR) 02/12/2022 Diabetes: Blood Sugar Control Test (HGBA1C) 02/12/2022 DTaP,Tdap,and Td Vaccines (2 - Td or Tdap) 03/21/2023 03/21/2013 Depression Screening 03/02/2024 COVID-19 Vaccine ( - season) 2024 07/24/2020, 06/26/2020 Influenza Vaccine (#1) 2024 4, 01/11/2023, 01/06/2022, Additional history exists Breast Cancer [...] for breast cancer from Last 3 Months or Most Recently Relevant to Health Maintenance Results * MG Mammo Digital Screening w Lev bilat (08/09/2024 9:48 AM EDT) Anatomical Region Laterality Modality Breast Bilateral Mammography 08/09/2024 2:25 PM EDT Impressions 08/09/2024 2:28 PM EDT 1. No mammographic evidence of malignancy 2. Heterogeneous breast parenchyma BI-RADS CATEGORY: 2 - BENIGN RECOMMENDATION: Screening bilateral mammogram is recommended in 1 year. Mammo Location: [facility], [address] [place] [address], [id number], . -------- FINAL REPORT -------- Dictated By: Renetta Dahl Dictated Date: 08/09/2024 14:25 ET Assigned Physician: Renetta Dahl Reviewed and Electronically Signed By: Renetta Dahl Signed Date: 08/09/2024 14:28 ET Workstation ID: [id number] Transcribed By: Self Edit Transcribed Date: 08/09/2024 [...] is recommended in 1 year. Mammo Location: [facility], [address] [place] [address], [id number], . -------- FINAL REPORT -------- Dictated By: Renetta Dahl Dictated Date: 08/09/2024 14:25 ET Assigned Physician: Renetta Dahl Reviewed and Electronically Signed By: Renetta Dahl Signed Date: 08/09/2024 14:28 ET Workstation ID: [id number] Transcribed By: Self Edit Transcribed Date: 08/09/2024 14:25 ET Heber Mcneill MD IMG BI PROCEDURES Final Res ult from Last 3 Months or Most Recently Relevant to Health Maintenance Insurance [employer] [place] Care Teams Avionics Test Technician Relationship Specialty Start Date End Date Vaughn Mcneill NP PCP - General Psychology 08/09/24
[2025-01-12 15:04] LABS: Appearance Urine Clear; Glucose Urine UA Negative (Negative); PH 5.5 (5.0-9.0); Specific Gravity - Urine >= 1.030 (1.005-1.025); UMIC TRIGGER UACC YES
[2025-01-12 15:14] LABS: Iron 89 mcg/dL (30-160); Percent Iron Saturation 32 % (15-50); Total Iron Binding Capacity 276 mcg/dL (228-428); Unsaturated Iron Binding 187 ug/dL
== END 2025-01-12 09:34 | disposition home or self-care (01) ==
LOC: HO.WFDLDS 09:33
PROVIDERS: Visit Provider Family Medicine
DX: Z00.00 Encounter for general adult medical examination without abnormal findings (principal); Z13.0 Encounter for screening for diseases of the blood and blood-forming organs and certain disorders involving the immune mechanism
CPT/HCPCS: 36415; 81001; 81003; 83540

== ENCOUNTER 2025-01-16 09:39 | Outpatient (REF) | payer MEDICARE, SELFPAY ==
--- NOTE | ~2025-01-16 | XR_ITS ---
EXAMINATION: XR CHEST CLINICAL INFORMATION: R06.09 - Other forms of dyspnea COMPARISON: None available. TECHNIQUE: PA and lateral views FINDINGS: Pulmonary reticular pattern. No hyperinflation. Cardiomediastinal silhouette size is normal. Deformity of the thorax secondary to the S-shaped configuration of the thoracolumbar spine. Metallic hardware placed in the thoracolumbar spine no fully included in the [id number]. XR/XR chest 2V IMPRESSION: Chronic interstitial lung disease without overt acute airspace disease. Multilevel spondylosis and scoliosis, thoracolumbar spine. Electronically signed by: Bruce Cheatham MD 01/16/2025 11:58 AM CRISTIAN
== END 2025-01-16 09:40 | disposition home or self-care (01) ==
LOC: HO.XRAY 09:39
PROVIDERS: PCP Family Medicine; Visit Provider Family Medicine
DX: I10 Essential (primary) hypertension (principal); E11.9 Type 2 diabetes mellitus without complications; R06.09 Other forms of dyspnea; E66.9 Obesity, unspecified
CPT/HCPCS: 71046; 83036; 99212

== ENCOUNTER 2025-01-16 09:39 | Outpatient (AMB) | payer BC, SELFPAY ==
--- NOTE | 2025-01-16 09:53 | A.OFFPC_ITS ---
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: No Allergies penicillin V Allergy (Mild, Verified 01/16/25 09:54) unknown Medication List - Last Reconciled 01/16/25 by Heber Mcneill MD blood sugar diagnostic (FreeStyle Lite Strips) As directed TID blood sugar diagnostic (FreeStyle Lite Strips) DX: E11.9, test blood sugar once a day, 90 days blood-glucose meter (FreeStyle Lite Meter kit) As directed blood-glucose meter (FreeStyle Lite Meter kit) DX: E11.9, test blood sugar once a day, duration 999 days clonidine HCl 0.1 mg PO DAILY 30 days ezetimibe (Zetia) 10 mg PO DAILY 90 days glipizide ER 2.5 mg PO DAILY 30 days ibuprofen 600 mg PO TID PRN 30 days lancets (FreeStyle Lancets) As directed lancets (FreeStyle Lancets) As directed losartan 50 mg PO DAILY 90 days metformin 500 mg PO DAILY 90 days tramadol 50 mg PO BID PRN 30 days zolpidem 10 mg PO BEDTIME PRN 30 days Tobacco use date assessed: 10/13/24 Dental Screening Dental Screen Date: 10/13/24 HPI f/u diabetes, HTN HPI Details 69 y/o female presents to f/u diabetes, HTN. Last A1c 01/16/25 6.3%. A1c today 6.4%. She is on metformin 500mg daily, glipizide 2.5mg. BP today 130/74, 100p. She is on losartan 50mg daily. Notes some dyspnea on exertion. Denies any chest pain. COUNTS INCLUDE 234 BEDS AT [facility] Medical History Bunion, right foot Surgical History H/O toe surgery History of lumbar fusion H/O knee surgery Family History Father Diabetes Mother Pacemaker High blood pressure Sister Mental health disorder Social History Housing: Condominium Alcohol intake: current Alcohol intake frequency: a few times a month Patient Tobacco Use Status: Former Tobacco user e-Cigarette/Vaping Use: Never Used Second Hand Smoke Exposure: No service: No Current occupational status: retired Current occupational exposures/hazards: No Cognitive needs: No Hearing needs: No Vision needs: No Questionnaire Thrive Questionnaire Date Thrive assessed: 03/29/24 I am a: Patient What is your living situation today?: I have a steady place to live Within the past 12 months, did the food you bought not last and you didn't have the money to get more?: Never true Within the past 12 months, did you worry whether your food would run out before you got money to buy more?: Never true Do you have trouble paying for medicines?: Yes Do you have trouble getting transportation to medical appointments?: Yes Do you have trouble paying your heating and electricity bill?: No Do you have trouble taking care of your child, family member or friend?: No Do you have trouble with day-to-day activities such as bathing, preparing meals, shopping, managing finances, etc.?: No Are you currently unemployed and looking for a job?: No Are you interested in more education?: No Please select the resources that you would like help with: None Currently or been in a relationship where the following occur: No concerns reported THRIVE Score: 1 MOE-7 AMB Questionnaire MOE-7 Date MOE - 7 assessed: 10/13/24 Source: Developed by Drs. César Jackson, Ramonita Fernandes, Cecilio Shepard and colleagues, with an educational vicente from [employer]. Review of Systems Const Denies chills, Denies fatigue, Denies fever(s), Denies headache(s) and Denies weakness ENT Denies dizziness and Denies headache(s) Card Denies dyspnea Resp Denies cough, Denies dyspnea, Denies wheezing and Denies other (shortness of breath) Musc Denies numbness and Denies tingling Neuro Denies dizziness, Denies headache(s), Denies numbness, Denies tingling and Denie s weakness Psych Denies anxiety and Denies depression Endo Denies fatigue Aller/Immun Denies wheezing Physical exam (Primary Care) Vital Signs: Last Vital Signs Temp 97.6 F 01/16/25 09:55 Pulse 100 01/16/25 09:55 Resp 16 01/16/25 09:55 BP 130/74 01/16/25 09:55 Pulse Ox 95 01/16/25 09:55 Oxygen Delivery Method Room Air 01/16/25 09:55 BMI result Body Mass Index 36.4 Tobacco/Smoking Status: Tobacco use Status Tobacco use date assessed 10/13/24 01/16/25 09:59 Patient Tobacco Use Status Former Tobacco user 01/16/25 09:59 e-Cigarette/Vaping Use Never Used 01/16/25 09:59 Thrive Assessment: Date of Thrive Assessment Date Thrive assessed 03/29/24 01/16/25 09:59 Currently or been in a relationship where the following occur: No concerns reported Const General: well developed; No acute distress Nutritional Appearance: well nourished Orientation/consciousness: patient oriented x3 HENMT Head: Yes normocephalic and Yes atraumatic Eyes General: appearance normal, both eyes and all related structures Pupils: Equal, round and reactive pupils present EOM: EOMs intact bilaterally Resp Effort & Inspection: normal respiratory effort Auscultation: clear to auscultation bilaterally Cardio Rate: regular rate Rhythm: regular rhythm Heart sounds: S1 normal heart sound present, S2 normal heart sound present, no gallops, no murmurs and no rubs Neuro General: patient oriented x3 and gait normal Cranial nerves: Yes Equal, round and reactive pupils present Psych Affect: normal affect Results AMB Hemoglobin A1c AMB Hemoglobin A1c 6.4 % Last Edit by FRASNISCO Ko on 01/16/25 10:04 Coding Level of Care Code Est Pt Level 4 (32079) Diagnoses Primary hypertension I10 Hypertension type: primary hypertension Diabetes E11.9 Diabetes mellitus type: type 2 Obesity E66.9 Dyspnea on exertion R06.09 Assessment & Plan Assessment & Plan (1) Hypertension: Code(s): I10 - Essential (primary) hypertension Category: Medical Qualifiers: Hypertension type: primary hypertension Qualified Code(s): I10 - Essential (primary) hypertension Plan: Blood pressure is controlled. Goal is less than 140/90 Continue losartan Encouraged weight loss and exercise (2) Diabetes: Code(s): E11.9 - Type 2 diabetes mellitus without complications Category: Medical Qualifiers: Diabetes mellitus type: type 2 Plan: A1c 6.4% is controlled. Goal is less than 7% Continue working at diet and exercise. Encouraged weight loss (3) Obesity: Code(s): E66.9 - Obesity, unspecified Category: Medical Plan: Patient has gained about 10 lb over the last year Encouraged diet and exercise (4) Dyspnea on exertion: Code(s): R06.09 - Other forms of dyspnea Category: Medical Plan: Patient notes some shortness of breath when she is walking with her son. She says she does not get shortness of breath and she is on a treadmill as she controls pace No chest pain or other symptoms. EKG: Normal sinus rhythm, normal axis, no hypertrophy, no ST-T-wave changes Will also check a chest x-ray As she has no other symptoms and only has the shortness of breath when she is walking at the same pace as her son, this is likely secondary deconditioning. Encouraged her to continue exercising and she can communicate with her son when she needs to slow down Orders: Orders XR chest 2V Today R06.09 - Other forms of dyspnea AMB Hemoglobin A1c Today E11.9 - Type 2 diabetes mellitus without complications
[2025-01-16 09:55] VITALS: BP 130/74; PULSE 100; RESP 16; TEMP 36.4; O2SAT 95; BMI 36.4
== END 2025-01-16 10:36 | disposition home or self-care (01) ==
LOC: HO.HMCFM 09:39
PROVIDERS: PCP Family Medicine; Visit Provider Family Medicine
DX: I10 Essential (primary) hypertension (principal); E11.9 Type 2 diabetes mellitus without complications; E66.9 Obesity, unspecified; Z68.36 Body mass index [BMI] 36.0-36.9, adult; R06.09 Other forms of dyspnea

== ENCOUNTER → 2025-01-16 11:34 | Outpatient (BNV) | payer MEDICARE, SELFPAY | PROVIDERS: PCP Family Medicine; Visit Provider Radiology Diagnostic Radiology | DX: J84.9 Interstitial pulmonary disease, unspecified (principal); M47.815 Spondylosis without myelopathy or radiculopathy, thoracolumbar region; M41.85 Other forms of scoliosis, thoracolumbar region | CPT/HCPCS: 71046 ==

== ENCOUNTER 2025-02-02 10:01 | Outpatient (AMB) | payer BC, SELFPAY ==
--- NOTE | 2025-02-02 09:59 | MHC.PC.OV ---
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: No Is last menstrual period known: No Post menopausal: No Patient : No Allergies penicillin V Allergy (Mild, Verified 02/02/25 09:59) unknown Medication List - Last Reconciled 02/02/25 by Heber Mcneill MD albuterol sulfate 90 mcg/actuation (Ventolin HFA) 2 puffs inhalation Q6-8H PRN 30 days blood sugar diagnostic (FreeStyle Lite Strips) As directed TID blood sugar diagnostic (FreeStyle Lite Strips) DX: E11.9, test blood sugar once a day, 90 days blood-glucose meter (FreeStyle Lite Meter kit) As directed blood-glucose meter (FreeStyle Lite Meter kit) DX: E11.9, test blood sugar once a day, duration 999 days clonidine HCl 0.1 mg PO DAILY 30 days ezetimibe (Zetia) 10 mg PO DAILY 90 days glipizide ER 2.5 mg PO DAILY 30 days ibuprofen 600 mg PO TID PRN 30 days lancets (FreeStyle Lancets) As directed lancets (FreeStyle Lancets) As directed losartan 50 mg PO DAILY 90 days metformin 500 mg PO DAILY 90 days tramadol 50 mg PO BID PRN 30 days zolpidem 10 mg PO BEDTIME PRN 30 days Tobacco use date assessed: 02/02/25 Fall risk assessment: No Falls in past year Last assessed Fall Risk: 02/02/25 Dental Screening Dental Screen Date: 02/02/25 Did you have a dental visit in the last 12 months?: Yes Did you have a dental problem in the last 6 months where you did not have access to dental care?: No Was dental information given to patient?: Patient has dentist HPI Chest X-Ray Results HPI Details 69 y/o female presents to f/u chest xray. Had noted some dyspnea on exertion without chest pain. Chest xray 01/16/25. Showed: Chronic interstitial lung disease without overt acute airspace disease. Multilevel spondylosis and scoliosis, thoracolumbar spine. [facility] Medical History Bunion, right foot Surgical History H/O toe surgery History of lumbar fusion H/O knee surgery Family History Father Diabetes Mother Pacemaker High blood pressure Sister Mental health disorder Social History Housing: Condominium Alcohol intake: current Alcohol intake frequency: a few times a month Patient Tobacco Use Status: Former Tobacco user e-Cigarette/Vaping Use: Never Used Second Hand Smoke Exposure: No Patient : No service: No Current occupational status: retired Current occupational exposures/hazards: No Cognitive needs: No Hearing needs: No Vision needs: No Questionnaire Thrive Questionnaire Date Thrive assessed: 03/29/24 MOE-7 AMB Questionnaire MOE-7 Date MOE - 7 assessed: 10/13/24 Source: Developed by Drs. César Jackson, Ramonita Fernandes, Cecilio Shepard and colleagues, with an educational vicente from [employer]. Review of Systems Const Denies chills, Denies fatigue, Denies fever(s), Denies headache(s) and Denies weakness ENT Denies dizziness and Denies headache(s) Card Denies dyspnea Resp Denies cough, Denies dyspnea, Denies wheezing and Denies other (shortness of breath) Musc Denies numbness and Denies tingling Neuro Denies dizziness, Denies headache(s), Denies numbness, Denies tingling and Denies weakness Psych Denies anxiety and Denies depression Endo Denies fatigue Aller/Immun Denies wheezing Physical exam (Primary Care) Tobacco/Smoking Status: Tobacco use Status Tobacco use date assessed 02/02/25 02/02/25 10:02 Patient Tobacco Use Status Former Tobacco user 02/02/25 10:02 e-Cigarette/Vaping Use Never Used 02/02/25 10:02 Thrive Assessment: Date of Thrive Assessment Date Thrive assessed 03/29/24 02/02/25 10:02 Telehealth Telehealth Telehealth Platform: Telephone Location of provider rendering services: practice address Location of patient: address on file Patient Identification confirmed using: Name, : Yes Telehealth method: voice only Patient verbally consented to treatment: Yes Patient verbally consented to billing insurance company: Yes Patient informed of any privacy concerns related to visit: Yes Minutes spent on Phone/Video with Pt.: 5 Coding Level of Care Code Tele Est Pt Level 2 (22543) Diagnoses Dyspnea on exertion R06.09 Assessment & Plan Assessment & Plan (1) Dyspnea on exertion: Code(s): R06.09 - Other forms of dyspnea Category: Medical Plan: Chest x-ray shows: Chronic interstitial lung disease without overt acute airspace disease. Multilevel spondylosis and scoliosis, thoracolumbar spine. Will get pulmonary function testing She can trial albuterol inhaler for now. Will follow-up at her scheduled appointment Orders: Orders PFT pulmonary function test Today R06.09 - Other forms of dyspnea Medications: New albuterol sulfate 90 mcg/actuation (Ventolin HFA) 2 puffs inhalation Q6-8H PRN 8.5 grams 2RF shortness of breath or wheezing 30 days
--- OUTSIDE RECORDS SUMMARY | 2025-02-02 11:51 | XMS_ITS | Clinical Summary ---
Author Organization [facility] [address] [place] [address] [place] [phone] Phone Care Team Providers Care Plastic Panel Installer Name Role Phone Vaughn Mcneill NP Primary Care Provider Unavaila ble Surgical History Surgery Date Site/Laterality Comments BACK SURGERY PROCEDURE: HISTORICAL BACK SURGERY; COMMENT: L[facility]pez catia for scoliosis COLONOSCOPY [id number] PROCEDURE: HISTORICAL COLONOSCOPY; COMMENT: repeat 2012 KNEE ARTHROSCOPY W/ DEBRIDEMENT 09/23/2021 Left PROCEDURE: [place] ARTHRS KNEE DEBRIDEMENT/SHAVING ARTCLR CRTLG; COMMENT: partial [...] is recommended in 1 year. Mammo Location: [facility], [address] [place] [address], [id number], . -------- FINAL REPORT -------- Dictated By: Renetta Dahl Dictated Date: 08/09/2024 14:25 ET Assigned Physician: Renetta Dahl Reviewed and Electronically Signed By: Renetta Dahl Signed Date: 08/09/2024 14:28 ET Workstation ID: [id number] Transcribed By: Self Edit Transcribed Date: 08/09/2024 [...] is recommended in 1 year. Mammo Location: [facility], [address] [place] [address], [id number], . -------- FINAL REPORT -------- Dictated By: Renetta Dahl Dictated Date: 08/09/2024 14:25 ET Assigned Physician: Renetta Dahl Reviewed and Electronically Signed By: Renetta Dahl Signed Date: 08/09/2024 14:28 ET Workstation ID: [id number] Transcribed By: Self Edit Transcribed Date: 08/09/2024 14:25 ET Heber Mcneill MD IMG BI PROCEDURES Final Res ult from Last 3 Months or Most Recently Relevant to Health Maintenance Insurance [employer] [place] MEDIC[place] ADVANTAGE Care Teams Plastic Panel Installer Relationship Specialty Start Date End Date Vaughn Mcneill NP PCP - General Psychology 08/09/24
== END 2025-02-02 17:05 | disposition home or self-care (01) ==
LOC: HO.HMCFM 10:02
PROVIDERS: PCP Family Medicine; Visit Provider Family Medicine
DX: R06.09 Other forms of dyspnea (principal); R91.8 Other nonspecific abnormal finding of lung field